=== PATIENT | female | born 1975 | race Caucasian/White ===

== ENCOUNTER → 2017-10-11 13:17 | Outpatient (POV) | payer OTHER, SELFPAY | PROVIDERS: Visit Provider Physician Assistant | DX: Z00.00 Encounter for general adult medical examination without abnormal findings (principal) ==

== ENCOUNTER 2022-01-05 19:25 | Emergency (ER) | payer BC, SELFPAY ==
[2022-01-05 19:26] VITALS: BP 142/90; PULSE 94; RESP 16; TEMP 36.8; O2SAT 97; BMI 46.6
[2022-01-05 20:02] VITALS: BMI 46.6
--- NOTE | 2022-01-05 20:18 | CT_ITS ---
PROCEDURE INFORMATION: Exam: CT Abdomen And Pelvis Without Contrast Exam date and time: 01/05/2022 8:38 PM Age: 46 years old Clinical indication: Abdominal pain; Flank; Right; Prior surgery; Surgery date: 6+ months; Surgery type: Tubal ligation; Additional info: Abd pain TECHNIQUE: Imaging protocol: Computed tomography of the abdomen and pelvis without contrast. Radiation optimization: All CT scans at this facility use at least one of these dose optimization techniques: automated exposure control; mA and/or kV adjustment per patient size (includes targeted exams where dose is matched to clinical indication); or iterative reconstruction. COMPARISON: No relevant prior studies available. FINDINGS: Liver: Normal. No mass. Gallbladder and bile ducts: Normal. No calcified stones. No ductal dilation. Pancreas: Normal. No ductal dilation. Spleen: Normal. No splenomegaly. 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 Kidneys and ureters: Nonobstructing right renal calculus. Stomach and bowel: Unremarkable. No obstruction. No mucosal thickening. Appendix: No evidence of appendicitis. Intraperitoneal space: Unremarkable. No free air. No significant fluid collection. Vasculature: Minimal atherosclerotic disease of the arteries. Lymph nodes: Unremarkable. No enlarged lymph nodes. Urinary bladder: Unremarkable as visualized. Reproductive: Bilateral tubal ligation. Bones/joints: Unremarkable. No acute fracture. Soft tissues: Small fat containing right inguinal hernia. Other findings: Stigmata of old granulomatous disease. IMPRESSION: 1. No acute findings. 2. Nonobstructing right renal calculus. COMMENTS: Consistent with the [employer]'s Incidental Findings Committee white paper (J Am Lalo Radiol 2017): For any incidental adrenal lesion greater than 1 cm but less than 4 cm classified in this report as benign, likely benign, or containing fat (including classification as an adenoma or myelolipoma), no follow-up imaging is recommended per consensus recommendations based on imaging criteria. Further lab evaluation could be pursued if warranted based on clinical findings.
--- NOTE | 2022-01-05 20:19 | HMH.EDNVD ---
ED Disposition Clinical Impression: Abdominal pain Qualifiers: Abdominal location: right lower quadrant Qualified Code(s): R10.31 - Right lower quadrant pain Disposition: Home, Self-Care Condition on Discharge: Good Instructions: DI for Acute Abdominal Pain Additional Instructions: see pcp for follow up Prescriptions: Dicyclomine HCl [Bentyl 10mg capsule] 10 mg PO TID #15 cap Transmission Status: Pending to [facility]/pharmacy #[id number] Referrals: Du Humphries [Primary Care Provider] - - Critical Care Critical Care Time: No Attestation: On 01/05/22, the high probability of a clinically significant, sudden or life threatening deterioration of the following system(s) required my full and direct attention, intervention and personal management. The time I documented below is in addition to time spent performing reported procedures but includes the following listed in this critical care notation. Medical Decision Making - Medical Records Medical records reviewed: Yes: I reviewed the patient's medical records. - Rafael Inquiry Pt receiving controlled substance: No Vital Signs: 01/05/22 19:26 Temperature 98.2 F Temperature Source Oral Pulse Rate [Right] 94 H Respiratory Rate 16 Blood Pressure [Right Arm] 142/90 H Blood Pressure Mean [Right Arm] 107 02 Sat by Pulse Oximetry 97 - Lab Data Lab results reviewed: Yes: I reviewed the patient's lab results. Lab Results 01/05/22 20:10: Urine Color Yellow, Urine Appearance Clear, Urine pH 7.5, Ur Specific [place] 1.020, Urine Protein Negative, Urine Glucose (UA) Negative, Urine Ketones Negative, Urine Blood Trace-i, Urine Nitrate Negative, Urine Bilirubin Negative, Urine Urobilinogen 0.2, Ur Leukocyte Esterase Negative, Urine RBC Occasional, Urine WBC None, Ur Squamous Epith Cells Occasional, Urine Bacteria None 01/05/22 20:10: WBC 7.4, RBC 4.34, Hgb 12.8, Hct 36.9 L, MCV 85.0, MCH 29.5, MCHC 34.7, RDW 13.9, Plt Count 334, MPV 8.1, Neut % (Auto) 69.8, Lymph % (Auto) 20.8, Gentry % (Auto) 7.0, Eos % (Auto) 2.1, Baso % (Auto) 0.3, Neut # (Auto) 5.1, Lymph # (Auto) 1.5, Gentry # (Auto) 0.5, Eos # (Auto) 0.2, Baso # (Auto) 0.0, ESR 46 H 01/05/22 20:10: Sodium 135 L, Potassium 4.2, Chloride 102, Carbon Dioxide 26, Anion Gap 11.2, BUN 10, Creatinine 0.60, Estimated Creat Clear 128, Estimated GFR 108, Est GFR ( Amer) 131, Glucose 86, Calcium 8.4, Total Bilirubin < 0.1 L, AST 22, ALT 18, Alkaline Phosphatase 103, C-Reactive Protein 17.5 H, Total Protein 7.0, Albumin 3.8, Globulin 3.2, Albumin/Globulin Ratio 1.2, Amylase 44, Lipase 34, Procalcitonin 0.053 Result diagrams: 01/05/22 20:10 01/05/22 20:10 Orders (Tests/Meds): ED MEDICATIONS Generic Name Dose Route Start Last Admin Trade Name Freq PRN Reason Stop Dose Admin Sodium Chloride 1,000 mls @ 999 mls/hr 01/05/22 20:15 01/05/22 21:10 Sod Chlor 0.9% 1000ml Bag IV 01/05/22 21:15 999 mls/hr .Q1H1M ZACHARY Administration Discontinued Medications Generic Name Dose Route Start Last Admin Trade Name Freq PRN Reason Stop Dose Admin Ketorolac Tromethamine 30 mg 01/05/22 20:12 01/05/22 21:10 Ketorolac 30mg/Ml Vial IV 01/05/22 20:13 30 mg ONCE ONE Administration Ondansetron HCl 4 mg 01/05/22 20:12 01/05/22 21:10 Ondansetron 4mg/2ml Vial IV 01/05/22 20:13 4 mg ONCE ONE Administration - CT Data CT Scan: Abdomen, Pelvis Time Received: 22:[address] Reviewed: Yes: I have viewed the radiologist's interpretation Preliminary Findings: Normal/NAD Medical Decision Narrative: has rt sided abd pain possible appendix/kidney stone or ovarian - but stable labs and xrays and will give trial of treatment and follow up with pcp Nausea/Vomiting/Diarrhea HPI - General Chief complaint: Abdominal Pain Stated complaint: r side abd pain Time Seen by Provider: 01/05/22 20:19 Mode of Arrival: Ambulatory Source of Information: Patient, Medical Record Limitations: No Limitations Description of Symptom
[2022-01-05 20:28] LABS: Microscopic, Urine URINE MICROSCOPIC (MICROSCOPIC)
[2022-01-05 20:31] LABS: Basophils % 0.3 % (0.1-2.0); Eosinophils # 0.2 K/mm3 (0.0-0.4); Eosinophils % 2.1 % (0.1-12.0); Hematocrit 36.9 % (37.0-47.0); Hemoglobin 12.8 g/dL (12.2-16.2); Lymphocytes # 1.5 K/mm3 (0.7-4.5); Lymphocytes % 20.8 % (10-50); Mean Corpuscular HGB Conc 34.7 g/dL (31.8-35.4); Mean Corpuscular Hemoglobin 29.5 pg (27.0-31.2); Mean Platelet Volume 8.1 fl (7.4-10.4); Monocytes # 0.5 K/mm3 (0.1-1.0); Neutrophils # 5.1 K/mm3 (1.8-7.8); Neutrophils % 69.8 % (37.0-80.0); Platelet Count 334 K/mm3 (142-424); Red Blood Count 4.34 M/mm3 (4.20-5.40); Red Cell Distribution Width 13.9 % (11.5-17.5); White Blood Count 7.4 K/mm3 (4.8-10.8)
[2022-01-05 20:48] LABS: Appearance,Urine CLEAR (Clear); Bilirubin,Urine Negative (Negative); Blood, Urine TRACE-I (Negative); Color,Urine YELLOW (Yellow); Glucose,Urine (UA) Negative (Negative); Ketones,Urine Negative (Negative); Leukocyte Esterase,Urine Negative (Negative); Nitrate,Urine Negative (Negative); PH,Urine 7.5 (5.0-8.5); Protein,Urine Negative (Negative); Urobilinogen,Urine 0.2 EU/dl (0.2)
[2022-01-05 20:50] LABS: Alanine Aminotransferase 18 U/L (12-78); Albumin Level 3.8 g/dl (3.5-5.0); Albumin/Globulin Ratio 1.2 (1.1-1.8); Alkaline Phosphatase 103 U/L (38-126); Amylase 44 U/L (30-110); Anion Gap 11.2 mEq/L (5-15); Aspartate Amino Transferase 22 U/L (14-36); Blood Urea Nitrogen 10 mg/dl (7-17); Calcium 8.4 mg/dl (8.4-10.2); Carbon Dioxide 26 mmol/L (22.0-30.0); Chloride 102 mmol/L (98-107); Creatinine Clearance Estimated 128 mL/min (50-200); Estimated Glomerular Filt Rate 108 ml/min (>60); GFR (African American) 131 ML/MIN (>60); Globulin 3.2 g/dL (1.3-3.2); Glucose 86 mg/dl (74-100); Lipase 34 U/L (23-300); Potassium 4.2 mmoL/L (3.5-5.1); Sodium 135 mmol/L (136-145)
[2022-01-05 20:51] LABS: Bilirubin,Total < 0.1 mg/dl (0.2-1.3)
[2022-01-05 20:55] LABS: C-Reactive Protein 17.5 mg/L (0-4)
[2022-01-05 21:10] LABS: Procalcitonin 0.053 ng/mL (0.0-2.0); RBC,Urine Occasional #/hpf (0-3); Squamous Epithelial Cell,Urine Occasional #/hpf (0-5)
[2022-01-05 21:11] LABS: Erythrocyte Sedimentation Rate 46 mm/hr (0-20)
[2022-01-05 22:23] VITALS: BP 125/78; PULSE 88; RESP 18; TEMP 36.7; O2SAT 97
== END 2022-01-05 22:35 | disposition home or self-care (01) ==
PROVIDERS: Emergency Provider Emergency Medicine; PCP Internal Medicine
DX: R10.31 Right lower quadrant pain (principal)
CPT/HCPCS: 74176; 80053; 81001; 82150; 83690; 84145; 85025; 85651; 86140; 96365; 96375; 99284; J2405

== ENCOUNTER → 2023-01-03 21:55 | Outpatient (CLI) | payer OTHER, SELFPAY ==
[2023-01-03 23:33] LABS: Thyroid Stimulating Hormone < 0.02 uIU/mL (0.465-4.68)
== END ==
PROVIDERS: PCP Internal Medicine; Visit Provider Obstetrics & Gynecology
DX: E03.9 Hypothyroidism, unspecified (principal); N93.9 Abnormal uterine and vaginal bleeding, unspecified
CPT/HCPCS: 84443

== ENCOUNTER → 2023-01-07 06:54 | Outpatient (CLI) | payer OTHER, SELFPAY ==
--- NOTE | 2023-01-07 07:02 | US_ITS ---
PROCEDURE: US TRANSVAGINAL CLINICAL INDICATION: abnormal uterine and vaginal bleeding COMPARISON: No exams were available for comparison FINDINGS: UTERUS: 7cm x 7cmx 6cm with a combined endometrial thickness of 13 millimeters. Retroverted uterus There are 2 nabothian cysts in the cervix measuring 1 cm and 0.6 cm LEFT OVARY: [id number] with a volume of 6ml. RIGHT OVARY: 2cmx [id number] with a volume of 3.9ml. There is a 7.6 millimeter follicle on the right ovary. Both ovaries are seen and appear normal. Doppler flow to both ovaries are seen. There is no fluid in the cul-de-sac. IMPRESSION: 1. Difficult examination. 2. Retroverted uterus normal in shape and size with an endometrium measuring 13 millimeters. Two nabothian cysts are seen in the cervix. 3. Both ovaries are seen and appear normal. There was a small follicle on the right ovary. 4. No fluid in the cul-de-sac. Dictated by: Rosalio Hollingsworth MD 01/07/2023 14:10 Rosalio Hollingsworth MD in OV 01/07/2023 14:10
== END ==
PROVIDERS: PCP Internal Medicine; Visit Provider Obstetrics & Gynecology
DX: N93.9 Abnormal uterine and vaginal bleeding, unspecified (principal)
CPT/HCPCS: 76830

== ENCOUNTER 2023-06-09 08:02 | Emergency (ER) | payer OTHER, SELFPAY ==
[2023-06-09 08:15] VITALS: PULSE 119; RESP 18; TEMP 36.9; O2SAT 97; BMI 50.2
--- NOTE | 2023-06-09 08:40 | EXP.UTC ---
Discharge Plan Disposition Patient Disposition: Home, Self-Care Condition: Good Prescriptions Prescriptions: New azithromycin [Zithromax] 250 mg tablet See Rx Instructions .ROUTE .COMPLEX Qty: 6 0RF Rx Instructions: For 250 mg dose pack: take 500 mg today (day 1), then 250 mg for 4 days (days 2-5) prednisone [prednisone] 20 mg tablet 20 mg PO BID Qty: 10 0RF No Action methimazole 5 mg tablet 7.5 mg PO DAILY montelukast 10 mg tablet 10 mg PO DAILY Patient Comments: TAKE 1 TABLET BY MOUTH EVERY DAY omeprazole 40 mg capsule,delayed release(DR/EC) 40 mg PO DAILY Patient Comments: TAKE 1 CAPSULE BY MOUTH EVERY DAY clindamycin phosphate 1 % solution 1 applic topical ketoconazole 2 % shampoo 1 applic topical Patient Comments: APPLY TOPICALLY TO THE SCALP 2 TIMES A WEEK NEEDED FOR PSORIASIS amlodipine-olmesartan 5-40 mg tablet 1 tab PO DAILY Patient Comments: TAKE 1 TABLET BY MOUTH DAILY Referrals Follow up/Referrals: Du Humphries [Primary Care Provider] - See instructions Activity Restrictions/Add. Instructions Additional Instructions/Restrictions: Start antibiotic today. Be sure to complete entire prescription even if feeling better Tylenol and ibuprofen as needed for pain or fever Humidifier/vaporizer/hot steamy shower Follow-up with primary care tomorrow. Follow-up immediately in the ER of the [facility] for new or worsening symptoms or no noticeable improvement over the next 48-72 hours. Stop smoking Inhaler every 4-6 hours as needed. Should help open airways improved cough, wheezing, shortness of breath Mona Foote will not cause drowsiness to use at bedtime to help stop cough so that she can get some sleep Start steroids today. Helps with inflammation therefore coughing and wheezing. Follow directions on package. Clinical Impressions Clinical Impression: Acute bronchitis Qualifiers: Bronchitis organism: other organism Qualified Code(s): J20.8 - Acute bronchitis due to other specified organisms Instructions Patient Instructions: Acute Bronchitis Discharge ED Provider: Eron ([facility])Claudine [facility] HPI General Stated complaint: cough, chest congestion, HERNANDEZ Mode of Arrival: Ambulatory Source of Information: Patient Limitations: No Limitations Time Seen by Provider: 06/09/23 08:40 Description of Symptoms (Recalled from Triage Doc. by RN): chest congestion, stuffy nose, right ear pain, and productive cough. HEENT Symptoms (Recalled from RN notes): Yes Resp Symptoms (Recalled from RN notes): No Skin Symptoms (Recalled from RN notes): No MS Symptoms (Recalled from RN notes): No Functional Status (Recalled from RN notes): n/a History of Present Illness Provider Complaint: 47 yr old female presents for chest congestion, stuffy nose, right ear pain, and productive cough with thick brown color sputum. Related Data Home Medications Medication Instructions Recorded Confirmed clindamycin phosphate 1 % topical 1 applic topical 12/30/22 12/30/22 solution ketoconazole 2 % shampoo 1 applic topical 12/30/22 12/30/22 methimazole 5 mg tablet 7.5 mg PO DAILY 12/30/22 06/09/23 montelukast 10 mg tablet 10 mg PO DAILY 12/30/22 06/09/23 omeprazole 40 mg capsule,delayed 40 mg PO DAILY 12/30/22 06/09/23 release amlodipine 5 mg-olmesartan 40 mg 1 tab PO DAILY 06/09/23 06/09/23 tablet Previous Rx's Medication Instructions Recorded azithromycin 250 mg tablet See Rx Instructions PO .COMPLEX #6 06/09/23 (Zithromax) tabs prednisone 20 mg tablet 20 mg PO BID #10 tabs 06/09/23 Allergies Allergy/AdvReac Type Severity Reaction Status Date / Time morphine Allergy Verified 06/09/23 08:26 ASA (ASPIRIN) Allergy Unknown Uncoded 12/30/22 10:54 From ULTRAM Allergy Unknown Uncoded 12/30/22 10:54 LATEX Allergy Unknown Uncoded 12/30/22 10:54 PCN (PENICILLIN) Allergy Unknown Uncoded 12/30/22 10:54 Worker's Comp Is this a Worker's
[2023-06-09 09:16] VITALS: BP 140/99; PULSE 119; RESP 18; TEMP 36.9; O2SAT 97
== END 2023-06-09 09:15 | disposition home or self-care (01) ==
PROVIDERS: Emergency Provider Nurse Practitioner Family; PCP Internal Medicine
DX: J20.8 Acute bronchitis due to other specified organisms (principal); R05.9 Cough, unspecified; R09.89 Other specified symptoms and signs involving the circulatory and respiratory systems; R51.9 Headache, unspecified; H92.01 Otalgia, right ear; E03.9 Hypothyroidism, unspecified; E66.01 Morbid (severe) obesity due to excess calories; Z87.891 Personal history of nicotine dependence
CPT/HCPCS: 99204; 99212; G0463

== ENCOUNTER 2023-09-24 07:32 | Outpatient (CLI) | payer OTHER, SELFPAY ==
[2023-09-24 07:48] LABS: Microscopic, Urine URINE MICROSCOPIC (MICROSCOPIC)
--- NOTE | 2023-09-24 08:00 | MM_ITS ---
PROCEDURE INFORMATION: Exam: Bilateral Screening 3D Mammography Exam date and time: 09/24/2023 8:18 AM Age: 48 years old Clinical indication: Screening examination TECHNIQUE: Imaging protocol: Bilateral Screening tomosynthesis and 2D mammography including computer-aided detection (CAD) when performed. COMPARISON: SCREEN MAMMO W CAD BILAT 07/10/2022 7:57 AM FINDINGS: MAMMOGRAPHY: Breast composition: There are scattered areas of fibroglandular density. Mass: No new or suspicious masses Architectural distortion: None. Calcifications: No suspicious calcifications. Asymmetric density: None. Skin thickening: None. Axillary adenopathy: None. IMPRESSION: No mammographic evidence of malignancy. Annual screening is recommended unless otherwise clinically indicated. ASSESSMENT: BI-RADS Category 1: Negative
[2023-09-24 08:13] LABS: Basophils % 0.4 % (0.1-2.0); Eosinophils # 0.2 K/mm3 (0.0-0.4); Eosinophils % 4.5 % (0.1-12.0); Hematocrit 38.3 % (37.0-47.0); Hemoglobin 12.3 g/dL (12.2-16.2); Lymphocytes # 1.5 K/mm3 (0.7-4.5); Lymphocytes % 29.8 % (10-50); Mean Corpuscular HGB Conc 32.1 g/dL (31.8-35.4); Mean Corpuscular Hemoglobin 28.8 pg (27.0-31.2); Mean Corpuscular Volume 89.8 fl (81-99); Mean Platelet Volume 8.8 fl (7.4-10.4); Monocytes # 0.3 K/mm3 (0.1-1.0); Monocytes % 6.6 % (1.7-9.3); Neutrophils % 58.8 % (37.0-80.0); Platelet Count 305 K/mm3 (142-424); Red Blood Count 4.27 M/mm3 (4.20-5.40); Red Cell Distribution Width 14.9 % (11.5-17.5); White Blood Count 5.1 K/mm3 (4.8-10.8)
[2023-09-24 08:56] LABS: Appearance,Urine CLEAR (Clear); Blood, Urine 3+ (Negative); Color,Urine YELLOW (Yellow); Glucose,Urine (UA) Negative (Negative); Ketones,Urine Negative (Negative); Leukocyte Esterase,Urine Negative (Negative); Nitrate,Urine Negative (Negative); Protein,Urine TRACE (Negative); Specific Gravity, Urine >= 1.030 (1.005-1.030); Urobilinogen,Urine 0.2 EU/dl (0.2)
[2023-09-24 09:31] LABS: Chol/HDL Ratio 6.1 (1-3.5); Cholesterol 158 mg/dl (140-200); HDL Cholesterol 26 mg/dl (40-60); Triglycerides 124 mg/dl (30-150); VLDL Cholesterol 25 mg/dL (0-40)
[2023-09-24 09:44] LABS: Bilirubin,Urine Negative (Negative)
[2023-09-24 10:02] LABS: Thyroid Stimulating Hormone 0.03 uIU/mL (0.465-4.68)
[2023-09-24 10:21] LABS: Vitamin B12 357 pg/mL (239-931)
[2023-09-24 10:23] LABS: 25-OH Vitamin D, Total 23.1 ng/mL (30-100)
[2023-09-24 11:46] LABS: WBC,Urine Occasional #/hpf (0-3)
[2023-09-24 11:47] LABS: Bacteria,Urine Trace /lpf; RBC,Urine Occasional #/hpf (0-3); Squamous Epithelial Cell,Urine Occasional #/hpf (0-5)
[2023-09-24 13:29] LABS: Hemoglobin A1C 5.5 % (4.0-6.0)
[2023-09-24 16:58] LABS: Creatinine,Urine Random 635 mg/dL (Not Estab.); Microalbumin/Creatinine Ratio 5.5
[2023-09-29 00:10] LABS: Vitamin B1 116.2 nmol/L (66.5-200.0)
== END 2023-09-24 23:59 ==
LOC: RAD 07:32
PROVIDERS: PCP Internal Medicine; Visit Provider Internal Medicine
DX: Z01.818 Encounter for other preprocedural examination (principal); E05.90 Thyrotoxicosis, unspecified without thyrotoxic crisis or storm; E78.2 Mixed hyperlipidemia; R73.03 Prediabetes; I10 Essential (primary) hypertension; E55.9 Vitamin D deficiency, unspecified; E53.9 Vitamin B deficiency, unspecified; F17.211 Nicotine dependence, cigarettes, in remission
CPT/HCPCS: 36415; 77063; 77067; 80061; 81001; 82043; 82306; 82570; 82607; 83036; 84425; 84439; 84443; 85025

== ENCOUNTER 2023-10-28 10:48 | Day surgery (SDC) | payer OTHER, SELFPAY ==
[2023-10-25 14:06] VITALS: BMI 55.5
[2023-10-28 11:18] VITALS: BP 123/95; PULSE 103; RESP 18; TEMP 36.3; O2SAT 96
[2023-10-28] MEDS: LACTATED RINGERS 1000ML 1,000 ML 100 ML IV (11:18)
[2023-10-28 11:49] LABS: HCG Qualitative, Serum Negative (Negative)
[2023-10-28 12:03] VITALS: O2SAT 95
--- NOTE | 2023-10-28 12:12 | HMH.SCOPE ---
Procedure: Date: 10/28/23 Patient Date of :: 1975 Procedure Performed:: Pre-op Screening evaluation Indications:: Screening examination before bariatric surgery Performing Provider:: Gelacio Smimons MD Referring Provider:: Du Humphries Sedation:: Propofol Procedure:: After placing the patient in the left lateral decubitus position, the colonoscopy was gently inserted into the rectum and under direct visualization advanced to the cecum which was identified by transillumination in the right lower quadrant, identification of the ileocecal valve, appendiceal orifice, and cecal strap. Color, texture, mucosa, and anatomy of the colon were carefully examined with the scope. Findings:: Anal canal: normal Rectum: normal Sigmoid colon: normal without polyps or inflammatory changes Descending colon: normal without polyps or inflammatory changes Splenic flexure: normal Transverse colon: normal without polyps or inflammatory changes Hepatic flexure: normal Ascending colon: normal without polyps or inflammatory changes Cecum: normal Terminal ileum: not visualized Impression: Normal colonoscopy Recommendations:: Follow up examination in about TEN years or so, sooner if clinically indicated. Complications:: None Estimated blood obtained (mL): 0 Colonoscopy Component Colonoscopy Component Was a colonoscopy performed during today's procedure?: Yes Recommended follow up colonoscopy of at least 10 years?: Yes
[2023-10-28 12:14] VITALS: BP 83/39; PULSE 97; RESP 18; TEMP 36.3; O2SAT 92
[2023-10-28 12:24] VITALS: BP 98/61; PULSE 112; RESP 16; O2SAT 94
[2023-10-28 12:44] VITALS: BP 113/68; PULSE 102; RESP 16; TEMP 36.6; O2SAT 98
--- NOTE | 2023-10-28 13:36 | EXP.ANES.CKL ---
[facility] Disclaimer: The information contained in this section may have been updated after the patient was seen, as this information can be updated by other users. Medical History GERD (gastroesophageal reflux disease) HTN (hypertension) Severe obesity (BMI >= 40) Abnormal uterine bleeding Hypothyroidism Surgical History Hx of tubal ligation Hx of laparoscopy Family History Other No significant family history Social History Smoking Status: Former smoker alcohol intake: never substance use type: denies use current occupational status: employed Travel in the last 8 weeks: None [facility] Anesthesia Checklist Patient Identification Patient Identification: Verbal (Name & ) Structural Data Admitted From: Home Planned Operative Procedure/s: colonoscopy Consent for Planned Operative Procedure(s) Verified: Yes Airway Assessment Mallampati Score:: Class II C-Spine Mobility Assessed: Yes TMJ Mobility Assessed: Yes Dentition: Good Dentition Neurological Assessment Level of Consciousness: Awake, Alert and Appropriate Anesthesia Plan Anesthesia Risk discussed: Yes Anesthesia Plan: Verified ASA Class: III Anesthesia Type: MAC
== END 2023-10-28 12:55 | disposition home or self-care (01) ==
PROVIDERS: PCP Internal Medicine; Visit Provider Internal Medicine Gastroenterology
PROC: 0DJD8ZZ Inspection of Lower Intestinal Tract, Via Natural or Artificial Opening Endoscopic (ICD-10-PCS; CPT 45378; principal; 2023-10-28 12:00)
DX: Z01.818 Encounter for other preprocedural examination (principal); E66.9 Obesity, unspecified
CPT/HCPCS: 45378; 84703

== ENCOUNTER 2023-11-04 02:38 | Outpatient (CLI) | payer OTHER, SELFPAY ==
[2023-11-10 10:31] LABS: Cotinine <10.0 ng/mL (.); Nicotine <10.0 ng/mL (.)
== END 2023-11-04 23:59 ==
LOC: LAB 02:40
PROVIDERS: PCP Internal Medicine; Visit Provider Internal Medicine
DX: Z01.818 Encounter for other preprocedural examination (principal)
CPT/HCPCS: 80323; G0480

== ENCOUNTER 2023-11-12 07:09 | Outpatient (CLI) | payer OTHER, SELFPAY ==
--- NOTE | 2023-11-12 07:13 | US_ITS ---
FINAL REPORT CLINICAL HISTORY: gastric sleeve preop FINDINGS: ULTRASOUND RIGHT UPPER QUADRANT Sonographic imaging of the right upper quadrant was obtained. The pancreas is partially obscured. The liver is fatty infiltrated There is no evidence of gallstones. There is no gallbladder wall thickening. There is no biliary ductal dilatation. The common duct is normal at 3 mm. Limited images of the right kidney are unremarkable. IMPRESSION: Fatty liver. Reviewed, Interpreted and Dictated by Guanaco Mo MD Transcribed by Niecy Dao Authenticated and [facility]
== END 2023-11-12 23:59 | disposition home or self-care (01) ==
LOC: RAD 07:09
PROVIDERS: PCP Internal Medicine; Visit Provider Surgery
DX: E66.01 Morbid (severe) obesity due to excess calories (principal); Z68.43 Body mass index [BMI] 50.0-59.9, adult
CPT/HCPCS: 76705

== ENCOUNTER 2023-12-22 12:28 | Outpatient (CLI) | payer OTHER, SELFPAY ==
[2023-12-22 14:27] LABS: Free T4 (Free Thyroxine) 3.42 ng/dl (0.78-2.19)
[2023-12-22 14:42] LABS: Thyroid Stimulating Hormone < 0.02 uIU/mL (0.465-4.68)
[2023-12-23 08:32] LABS: Triiodothyronine (T3) Total 238 ng/dL (71-180)
== END 2023-12-22 23:59 | disposition home or self-care (01) ==
LOC: LAB 12:29
PROVIDERS: PCP Internal Medicine; Visit Provider Internal Medicine
DX: E05.00 Thyrotoxicosis with diffuse goiter without thyrotoxic crisis or storm (principal)
CPT/HCPCS: 36415; 84439; 84443; 84480

== ENCOUNTER 2024-02-24 18:49 | Outpatient (CLI) | payer OTHER, SELFPAY ==
[2024-02-24 23:51] LABS: Basophils % 0.5 % (0.1-2.0); Eosinophils # 0.2 K/mm3 (0.0-0.4); Eosinophils % 4.2 % (0.1-12.0); Hematocrit 41.3 % (37.0-47.0); Hemoglobin 13.2 g/dL (12.2-16.2); Lymphocytes # 1.9 K/mm3 (0.7-4.5); Lymphocytes % 32.4 % (10-50); Mean Corpuscular Hemoglobin 29.7 pg (27.0-31.2); Mean Corpuscular Volume 92.8 fl (81-99); Mean Platelet Volume 9.2 fl (7.4-10.4); Monocytes # 0.4 K/mm3 (0.1-1.0); Monocytes % 6.7 % (1.7-9.3); Neutrophils # 3.3 K/mm3 (1.8-7.8); Neutrophils % 56.2 % (37.0-80.0); Platelet Count 301 K/mm3 (142-424); Red Blood Count 4.45 M/mm3 (4.20-5.40); Red Cell Distribution Width 15.4 % (11.5-17.5); White Blood Count 5.8 K/mm3 (4.8-10.8)
[2024-02-25 00:11] LABS: Alanine Aminotransferase 29 U/L (12-78); Albumin/Globulin Ratio 1.3 (1.1-1.8); Alkaline Phosphatase 72 U/L (38-126); Anion Gap 9.6 mEq/L (5-15); Aspartate Amino Transferase 34 U/L (14-36); Bilirubin,Total 0.4 mg/dl (0.2-1.3); Blood Urea Nitrogen 12 mg/dl (7-17); Calcium 8.8 mg/dl (8.4-10.2); Carbon Dioxide 27 mmol/L (22.0-30.0); Chloride 106 mmol/L (98-107); Estimated Glomerular Filt Rate 107 ml/min (>60); GFR (African American) 130 ML/MIN (>60); Globulin 3.2 g/dL (1.3-3.2); Glucose 86 mg/dl (74-100); Potassium 3.6 mmoL/L (3.5-5.1); Sodium 139 mmol/L (136-145); Total Protein,Serum 7.2 g/dl (6.3-8.2)
[2024-02-25 00:26] LABS: Free T4 (Free Thyroxine) 1.32 ng/dl (0.78-2.19)
[2024-02-25 00:41] LABS: Thyroid Stimulating Hormone < 0.02 uIU/mL (0.465-4.68)
[2024-02-26 12:12] LABS: Triiodothyronine (T3) Total 168 ng/dL (71-180)
[2024-02-27 16:32] LABS: Thyroid Stimulating Immunoglob 0.83 IU/L (0.00-0.55)
[2024-02-28 11:21] LABS: Miscellaneous Test SCANNED IMAGE
== END 2024-02-24 23:59 | disposition home or self-care (01) ==
LOC: LAB 18:52
PROVIDERS: PCP Internal Medicine; Visit Provider Internal Medicine Endocrinology, Diabetes & Metabolism
DX: E05.00 Thyrotoxicosis with diffuse goiter without thyrotoxic crisis or storm (principal); E05.90 Thyrotoxicosis, unspecified without thyrotoxic crisis or storm
CPT/HCPCS: 80050; 80053; 84439; 84443; 84445; 84480; 85025

== ENCOUNTER 2024-04-04 16:37 | Outpatient (POV) | payer OTHER, SELFPAY | END 2024-04-04 23:59 | disposition home or self-care (01) | LOC: SC 16:37 | PROVIDERS: PCP Internal Medicine; Visit Provider Dermatology | DX: Z00.00 Encounter for general adult medical examination without abnormal findings (principal) ==

== ENCOUNTER 2024-04-24 08:04 | Emergency (ER) | payer OTHER, SELFPAY ==
[2024-04-24 08:20] VITALS: BP 141/89; PULSE 86; RESP 19; TEMP 36.6; O2SAT 97; BMI 44.1
--- NOTE | 2024-04-24 08:44 | ED_ITS ---
Discharge Plan Disposition Patient Disposition: Home, Self-Care Condition: Good Prescriptions Prescriptions: New prednisone 10 mg tablet 10 mg PO DIRECTED 9 Days Qty: 21 0RF Rx Instructions: Take 4 tablets daily for 3 days, then take 2 tablets daily for 3 days, then take 1 tablet daily for 3 days, then stop. azithromycin [Zithromax] 250 mg tablet 250 mg PO UD DOSE PK Qty: 6 0RF Rx Instructions: Take two (2) tablets today, then one (1) tablet days #2 thru #5 benzonatate 100 mg capsule 100 mg PO TIDP PRN (Reason: Cough) Qty: 30 0RF No Action doxycycline hyclate 100 mg capsule 100 mg PO DAILY Patient Comments: TAKE 1 CAPSULE BY MOUTH TWICE DAILY omeprazole 40 mg capsule,delayed release(DR/EC) 40 mg PO DAILY Patient Comments: TAKE 1 CAPSULE BY MOUTH EVERY DAY montelukast 10 mg tablet 10 mg PO DAILY Patient Comments: TAKE 1 TABLET BY MOUTH EVERY DAY methimazole 10 mg tablet 10 mg PO DAILY Referrals Follow up/Referrals: Du Humphries [Primary Care Provider] - See instructions Activity Restrictions/Add. Instructions Additional Instructions/Restrictions: Drink plenty of fluids. Take tylenol or ibuprofen for pain or fever. Take the medications as directed. Follow up with your regular doctor. GO TO THE ER FOR ANY WORSENING SYMPTOMS Clinical Impressions Clinical Impression: Sinusitis Instructions Patient Instructions: Sinusitis, DI for Sinusitis Print Language Print Language: Afghan Discharge ED Provider: Britton Kline [facility] General Stated complaint: head congestion Mode of Arrival: Ambulatory Source of Information: Patient Limitations: No Limitations Time Seen by Provider: 04/24/24 08:56 Description of Symptoms (Recalled from Triage Doc. by RN): PATIENT C/O RIGHT EAR PAIN, SINUS PAIN/PRESSURE AND CONGESTION SINCE YESTERDAY HEENT Symptoms (Recalled from RN notes): Yes Resp Symptoms (Recalled from RN notes): No Skin Symptoms (Recalled from RN notes): No MS Symptoms (Recalled from RN notes): No Functional Status (Recalled from RN notes): WNL Related Data Home Medications ?Medication ?Instructions ?Recorded ?Confirmed doxycycline hyclate 100 mg capsule 100 mg PO DAILY 04/24/24 04/24/24 methimazole 10 mg tablet 10 mg PO DAILY 04/24/24 04/24/24 montelukast 10 mg tablet 10 mg PO DAILY 04/24/24 04/24/24 omeprazole 40 mg capsule,delayed 40 mg PO DAILY 04/24/24 04/24/24 release Previous Rx's ?Medication ?Instructions ?Recorded azithromycin 250 mg tablet 250 mg PO UD DOSE PK #6 tabs 04/24/24 (Zithromax) benzonatate 100 mg capsule 100 mg PO TIDP PRN Cough #30 caps 04/24/24 prednisone 10 mg tablet 10 mg PO DIRECTED 9 days #21 04/24/24 tabs Allergies Allergy/AdvReac Type Severity Reaction Status Date / Time aspirin Allergy Unknown Verified 04/24/24 08:29 allergy reaction latex Allergy Unknown Verified 04/24/24 08:29 allergy reaction morphine Allergy Unknown Verified 04/24/24 08:29 allergy reaction Penicillins Allergy Unknown Verified 04/24/24 08:29 allergy reaction tramadol [From Ultram] Allergy Unknown Verified 04/24/24 08:29 allergy reaction Worker's Comp Is this a Worker's Comp case?: No [facility] Disclaimer: The information contained in this section may have been updated after the patient was seen, as this information can be updated by other users. Medical History (Updated 04/24/24 @ 08:45 by Britton Kline APRN) GERD (gastroesophageal reflux disease) HTN (hypertension) Severe obesity (BMI >= 40) Abnormal uterine bleeding Hypothyroidism Surgical History Hx of tubal ligation Hx of laparoscopy Family History Other No significant family history Social History Smoking Status: Former smoker alcohol intake: never substance use type: denies use current occupational status: employed Travel in the last 8 weeks: None ROS Obtained: Yes All systems reviewed & no additional complaints except as documented Constitutional Constitutional: Reports poor appetite Eyes Eyes: Reports system reviewed and no additional complaints, except as documented ENT Ears, Nose, Mouth, and Throat: Reports as per HPI Cardiovascular Cardiovascular: Reports system reviewed and no additional complaints, except as documented and Denies chest pain Respiratory Respiratory: Denies shortness of breath, Denies chest congestion, Reports cough, Denies stridor and Denies wheezing Gastrointestinal Gastrointestingal: Reports system reviewed and no additional complaints, except as documented; Denies abdominal pain, diarrhea or vomiting Musculoskeletal Musculoskeletal: Reports system reviewed and no additional complaints, except as documented and Denies arthralgias Integumentary/Breasts Skin/Breast: Reports system reviewed and no additional complaints, except as documented and Denies rash Neurologic Neurologic: Denies paresthesias Allergic/Immunologic Allergic/Immunologic: Denies wheezing Physical Exam General General appearance: alert and in no apparent distress Eye Eye exam: Present normal appearance, PERRL and EOMI ENT ENT exam: Present mucous membranes moist and normal external ear exam Expanded ENT Exam External ear exam: Present normal external inspection TM/Canal exam: Bilateral TM: erythema and bulging Nose exam: Absent sinus tenderness Nasal speculum exam: Bilateral: normal Mouth exam: Present normal external inspection; Absent drooling Teeth exam: Present normal inspection Throat exam: Present tonsillar erythema and tonsillomegaly Neck Neck exam: Present normal inspection, full ROM and trachea midline; Absent tenderness, lymphadenopathy or thyromegaly Chest Chest inspection: Present normal inspection and symmetric chest wall rise; Absent tenderness or rash Respiratory Respiratory exam: Present normal lung sounds bilaterally; Absent respiratory distress, wheezes, stridor or accessory muscle use Cardiovascular Cardiovascular exam: Present regular rate, normal rhythm and normal heart sounds Abdominal Exam Abdominal exam: Present soft; Absent distention, tenderness, guarding, rebound or rigidity Extremities Exam Extremities exam: Present normal inspection, full ROM and normal capillary refill; Absent tenderness or calf tenderness Back Exam Back exam: Present normal inspection and full ROM; Absent tenderness Neurological Exam Neurological exam: Present alert and oriented X3 Psychiatric Psychiatric exam: Present normal affect and normal mood Skin Skin exam: Present warm, dry, intact and normal color Lymphatic Lymphatic Findings: no adenopathy Medical Decision Making Medical Records Medical records reviewed: No I reviewed the patient's medical records. Screening: Per USPSTF and CDC recommendations, given the prevalence of disease in our region, it is our hospital?s policy to screen for HIV and viral Hepatitis for all patients aged 18 and over and those with ongoing risk factors. Rafael Inquiry Pt receiving controlled substance: No Vital Signs: 04/24/24 08:20 Temperature 97.9 F Temperature Source Oral Pulse Rate [Left Brachial] 86 Respiratory Rate 19 Blood Pressure [Left Arm] 141/89 H Blood Pressure Mean [Left Arm] 106 Blood Pressure Source [Left Arm] Automatic Cuff Blood Pressure Position [Left Arm] Sitting 02 Sat by Pulse Oximetry 97 Oxygen Delivery Method Room Air Lab Data Lab results reviewed: Yes I reviewed the patient's lab results.
[2024-04-24 08:50] VITALS: BP 141/89; PULSE 86; RESP 19; TEMP 36.6; O2SAT 97
== END 2024-04-24 08:56 | disposition home or self-care (01) ==
PROVIDERS: Emergency Provider Nurse Practitioner Family; PCP Internal Medicine
DX: J01.90 Acute sinusitis, unspecified (principal); H92.01 Otalgia, right ear; R09.81 Nasal congestion
CPT/HCPCS: 99212; 99214; G0463

== ENCOUNTER 2024-07-18 19:59 | Outpatient (CLI) | payer OTHER, SELFPAY | END 2024-07-18 23:59 | disposition home or self-care (01) | LOC: LAB 20:00 | PROVIDERS: PCP Internal Medicine; Visit Provider Internal Medicine | DX: Z02.9 Encounter for administrative examinations, unspecified (principal) ==

== ENCOUNTER 2024-07-25 18:46 | Outpatient (CLI) | payer OTHER, SELFPAY ==
[2024-07-26 01:52] LABS: Basophils % 0.4 % (0.1-2.0); Eosinophils # 0.3 K/mm3 (0.0-0.4); Eosinophils % 3.5 % (0.1-12.0); Hematocrit 37.4 % (37.0-47.0); Hemoglobin 12.5 g/dL (12.2-16.2); Lymphocytes % 27.9 % (10-50); Mean Corpuscular HGB Conc 33.4 g/dL (31.8-35.4); Mean Corpuscular Hemoglobin 29.8 pg (27.0-31.2); Mean Corpuscular Volume 89.3 fl (81-99); Monocytes # 0.6 K/mm3 (0.1-1.0); Monocytes % 8.8 % (1.7-9.3); Neutrophils # 4.1 K/mm3 (1.8-7.8); Neutrophils % 58.8 % (37.0-80.0); Platelet Count 312 K/mm3 (142-424); Red Blood Count 4.19 M/mm3 (4.20-5.40); Red Cell Distribution Width 12.9 % (11.5-17.5); White Blood Count 7.1 K/mm3 (4.8-10.8)
[2024-07-26 02:37] LABS: Free T4 (Free Thyroxine) 1.24 ng/dl (0.78-2.19)
[2024-07-26 02:51] LABS: HDL Cholesterol 28 mg/dl (40-60)
[2024-07-26 02:52] LABS: Thyroid Stimulating Hormone < 0.02 uIU/mL (0.465-4.68)
[2024-07-26 02:53] LABS: Anion Gap 13.3 mEq/L (5-15); Blood Urea Nitrogen 13 mg/dl (7-17); Calcium 9.1 mg/dl (8.4-10.2); Carbon Dioxide 24 mmol/L (22.0-30.0); Chloride 103 mmol/L (98-107); Estimated Glomerular Filt Rate 107 ml/min (>60); GFR (African American) 130 ML/MIN (>60); Glucose 108 mg/dl (74-100); Potassium 4.3 mmoL/L (3.5-5.1); Sodium 136 mmol/L (136-145)
[2024-07-26 02:54] LABS: Iron 52 ug/dL (37-170); Phosphorous 4.5 mg/dl (2.5-4.5); Total Iron Binding Capacity 364 ug/dL (265-497)
[2024-07-26 02:55] LABS: Bilirubin,Total 0.3 mg/dl (0.2-1.3)
[2024-07-26 02:56] LABS: Aspartate Amino Transferase 24 U/L (14-36); Ferritin 32.2 ng/ml (6.24-137)
[2024-07-26 02:58] LABS: Alanine Aminotransferase 20 U/L (12-78); Albumin Level 3.8 g/dl (3.5-5.0); Albumin/Globulin Ratio 1.4 (1.1-1.8); Alkaline Phosphatase 94 U/L (38-126); Chol/HDL Ratio 5.6 (1-3.5); Cholesterol 158 mg/dl (140-200); Direct LDL Cholesterol 100.21 mg/dL (100-129); Globulin 2.7 g/dL (1.3-3.2); Total Protein,Serum 6.5 g/dl (6.3-8.2); Triglycerides 194 mg/dl (30-150); VLDL Cholesterol 39 mg/dL (0-40)
[2024-07-26 03:18] LABS: Hemoglobin A1C 5.1 % (4.0-6.0)
[2024-07-26 04:27] LABS: Intact Parathyroid Hormone 36.3 pg/mL (7.5-53.5)
[2024-07-26 04:32] LABS: 25-OH Vitamin D, Total 65.7 ng/mL (30-100)
[2024-07-26 05:29] LABS: Folate > 20.00 ng/mL
[2024-07-31 14:09] LABS: Vitamin A 38.4 ug/dL (20.1-62.0)
== END 2024-07-25 23:59 | disposition home or self-care (01) ==
LOC: LAB 18:47
PROVIDERS: PCP Internal Medicine; Visit Provider Internal Medicine
DX: Z90.3 Acquired absence of stomach [part of] (principal)
CPT/HCPCS: 36415; 80050; 80053; 80061; 82306; 82728; 82746; 83036; 83540; 83550; 83735; 83970; 84100; 84425; 84439; 84443; 84590; 84630; 85025

== ENCOUNTER 2024-08-03 07:14 | Outpatient (CLI) | payer OTHER, SELFPAY ==
[2024-08-05 08:12] LABS: Triiodothyronine (T3) Total 164 ng/dL (71-180)
== END 2024-08-03 23:59 | disposition home or self-care (01) ==
LOC: LAB 07:16
PROVIDERS: PCP Internal Medicine; Visit Provider Internal Medicine
DX: E05.90 Thyrotoxicosis, unspecified without thyrotoxic crisis or storm (principal)
CPT/HCPCS: 36415; 84480

== ENCOUNTER 2024-09-18 07:10 | Outpatient (CLI) | payer OTHER, SELFPAY ==
[2024-09-18 07:18] LABS: Microscopic, Urine URINE MICROSCOPIC (MICROSCOPIC)
--- NOTE | 2024-09-18 07:24 | XR_ITS ---
FINAL REPORT CLINICAL HISTORY: ACUTE RT FLANK PAIN COMPARISON: None FINDINGS: SINGLE VIEW ABDOMEN A single view of the abdomen was obtained. There is a nonobstructive bowel gas pattern. There are no abnormally dilated loops of small bowel. No abnormal calcifications are identified. There are clips overlying the pelvis from bilateral tubal ligation. IMPRESSION: Nonobstructive bowel gas pattern. Reviewed, Interpreted and Dictated by Lissa Rashid MD Transcribed by Marlyn Koroma Authenticated and [facility]
[2024-09-18 07:52] LABS: Appearance,Urine CLEAR (Clear); Bilirubin,Urine Negative (Negative); Blood, Urine TRACE-I (Negative); Color,Urine YELLOW (Yellow); Glucose,Urine (UA) Negative (Negative); Ketones,Urine Negative (Negative); Leukocyte Esterase,Urine Negative (Negative); Nitrate,Urine Negative (Negative); Protein,Urine Negative (Negative); Specific Gravity, Urine >= 1.030 (1.005-1.030); Urobilinogen,Urine 0.2 EU/dl (0.2)
[2024-09-18 08:33] LABS: Bacteria,Urine 2+ /lpf
[2024-09-18 08:34] LABS: Calcium Oxalate Crystals,Urine 1+ /lpf
== END 2024-09-18 23:59 | disposition home or self-care (01) ==
LOC: RAD 07:11
PROVIDERS: PCP Internal Medicine; Visit Provider Internal Medicine
DX: R10.9 Unspecified abdominal pain (principal); M54.50 Low back pain, unspecified; K59.00 Constipation, unspecified; R31.29 Other microscopic hematuria
CPT/HCPCS: 74018; 81001; 87086

== ENCOUNTER 2025-03-19 10:10 | Outpatient (CLI) | payer OTHER, SELFPAY ==
--- OUTSIDE RECORDS SUMMARY | 2025-03-19 08:00 | XMS_ITS | Encounter Summary ---
Author Organization [facility] Address [address] [place] [address] Care Team Providers Care Hand Mold Maker Name Role Phone Du Humphries MD Primary Care Provider [phone] Reason for Referral * Consultation (Routine) - Authorized Specialty Diagnoses / Procedures Referred By Contac t Referred To Contact Diagnoses Graves disease Hyperthyroidism Ignacio Enciso MD [address] [place] [address] Phone: tel: fax: Referral ID Status Reason Start Date Expiration Date V isits Requested Visits Authorized [id number] Authorized 03/19/2025 09/18/2026 1 1 Reason for Visit * Reason Comments Follow-up Encounter Details Date Type Department Care Team (Late st Contact Info) Description 03/19/2025 8:00 AM EDT Office Visit Professional [facility] [address] [place] [address] Ignacio Enciso MD [address] [facility] [address] [place] [address] Graves disease (Primary Dx); Hyperthyroidism; Other fatigue Social History Tobacco Use Types Packs/Day Years Used Date Smoking Tobacco: Never Smokeless Tobacco: Never Alcohol Use Standard Drinks/Week Comments Never 0 (1 standard drink = 0.6 oz pur e alcohol) PHQ-2 Answer Date Recorded Patient Health Questionnaire-2 Score 0 02/09/2024 Comments Unknown Sex and Gender Information Value Date Recorded Sex Assigned at Not on file Legal Sex Female 8:33 PM EDT Gender Identity Not on file Sexual Orientation Not on file documented as of this encounter Last Filed Vital Signs Vital Sign Reading Time Taken Comments Blood Pressure 107/77 03/19/2025 7:47 AM EDT Pulse 77 03/19/2025 7:47 AM EDT Temperature - - Respiratory Rate - - Oxygen Saturation 96% 03/19/2025 7:47 AM EDT Inhaled Oxygen Concentration - - Weight 136 kg (300 lb 4.3 oz) 03/19/2025 7:47 AM EDT Height 175.3 cm (5' 9 ) 03/19/2025 7:47 AM EDT Body Mass Index 44.34 03/19/2025 7:47 AM EDT documented in this encounter Miscellaneous Notes * Patient Instructions - Ignacio Enciso MD - 03/19/2025 8:00 AM EDT It was a pleasure meeting you today! Let us get the labs Please return to the clinic in 6 months * Progress Notes - Ignacio Enciso MD - 03/19/2025 8:00 AM EDT Subjective Verónica Chappell is a 49 y.o., female here for follow up for Graves Disease. Interval History Last Visit:02.09.2024 Since last visit the patient lost to follow up She was still having annual follow up with PCP to check TFT's She reports feeling fatigued Current regimen: MMI 10mg daily She reports hungry all the time She feels no motivation She is still having monthly menses She is no longer on biotin She sleeps well and does not snore - feels rested when she wakes up HYPERTHYROIDISM: She reports that she was diagnosed with Graves Disease in 2020 She reports that she was asymptomatic and was found on routine blood-work. She is currently on MMI 10mg daily. Currently, Weight Changes: Denied, had recent bariatric surgery Changes in Bowel Movements: Denied Anxiety: Denied Tremor: Denied Palpitations: Denied Heat Intolerance: Denied There is no history of any medication known to cause hyperthyroidism. She denies taking any iodine, kelp, or thyroid hormone support supplementation. She took probiotic She is has started biotin and collagen for hair loss due to sleeve gastrectomy done on 12.14.2023 Contains Biotin 5000mcg daily. 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 [employer] Date TSH FT4 TT3 TSI TRAb TPO Ab Old New 3.18.21 0.02 1.31 FT3 4.7 TSI 1.18 (<0.55) 6.25.21 0.033 1.59 FT3 5.31 (2-4.4) MMI 5 10.18.21 0.180 1.55 FT3 5.24 MMI 5 MMI 10 5.20.22 5.84 1.08 FT3 3.05 MMI 10 MMI 7.5 12.9.22 0.316 1.58 FT3 5.1 MMI 7.5 MMI 7.5 5.29.24 0.02 3.42 238 H MMI 7.5 MMI 10 8.1.24 <0.02 1.32 168 MMI 10 1.9.25 0.02 1.24 164 0.83 H Folate > 20 B12 357 25D 65.7 MMI 10 Past Medical History: Diagnosis Date Acid reflux Hyperthyroidism Psoriasis Past Surgical History: Procedure Laterality Date BARIATRIC SURGERY GASTRIC BYPASS HYSTERECTOMY TONSILECTOMY, ADENOIDECTOMY, BILATERAL MYRINGOTOMY AND TUBES Current Outpatient Medications: calcium carbonate (Os-Carlos) 1250 (500 Ca) MG chewable tablet, Chew 1 tablet (1,250 mg) 1 (one) time each day., Disp: , Rfl: cholecalciferol (Vitamin D3) 25 MCG (1000 UT) tablet, Take 1 tablet (1,000 Units) by mouth 1 (one) time each day., Disp: , Rfl: clindamycin (Cleocin T) 1 % external solution, APPLY TO INVOLVED SKIN TWICE DAILY NEEDED, Disp: , Rfl: ketoconazole (NIZOral) 2 % shampoo, APPLY TOPICALLY TO THE SCALP 2 TIMES A WEEK NEEDED FOR PSORIASIS, Disp: , Rfl: methIMAzole (Tapazole) 10 MG tablet, Take 1 tablet by mouth daily. PLEASE MAKE AN APPOINTMENT FOR MORE REFILLS., Disp: 74 tablet, Rfl: 0 montelukast (Singulair) 10 MG tablet, Take 1 tablet (10 mg) by mouth 1 (one) time each day., Disp: , Rfl: Multiple Vitamin (Quintabs) tablet, Take 1 tablet by mouth., Disp: , Rfl: omeprazole (PriLOSEC) [address] capsule, Take 1 capsule (40 mg) by mouth Daily., Disp: , Rfl: Probiotic Product (Probiotic 10 Ultra Strength) capsule, Take 1 tablet by mouth 1 (one) time each day., Disp: , Rfl: albuterol 108 (90 Base) MCG/ACT inhaler, Inhale 1 puff every 6 (six) hours if needed. (Patient not taking: Reported on 03/19/2025), Disp: , Rfl: senna (Senokot) 8.6 MG tablet, Take 2 tablets (17.2 mg) by mouth 1 (one) time each day. (Patient not taking: Reported on 03/19/2025), Disp: , Rfl: Allergies Allergen Reactions Clindamycin Swelling throat spasms Morphine And Codeine Anaphylaxis, Other - please document in the comment field and Swelling Tramadol Hives and Rash Does not remember reaction Enz-Nfxg-Qssq Buffered Nausea Latex Rash Nsaids Other - please document in the comment field Due to weight loss surgery, patient is unable to use this medication Ondansetron Other - please document in the comment field sts causes constipation Penicillins Rash As a baby, unknown reaction Patient states she has never taken medication, but all family members have had a severe reaction Topiramate Other - please document in the comment field Sedation and moodieness reports that she has never smoked. She has never used smokeless tobacco. She reports that she does not drink alcohol and does not use drugs. Family History Problem Relation Name Age of Onset Osteoporosis Mother No Known Problems Father There is no additional family hx of hyperthyroidism, hypothyroidism or goiter. Additionally, there is no family hx of autoimmune disease. Review of Systems: .Review of Systems Constitutional: Negative for chills and fever. Respiratory: Negative for shortness of breath. Cardiovascular: Negative for chest pain. Gastrointestinal: Negative for nausea and vomiting. A complete ROS demonstrated all other systems negative in detail Objective Physical Exam: BP 107/77 Pulse 77 Ht 1.753 m (5' 9 ) Wt 136 kg (300 lb 4.3 oz) BMI 44.34 kg/m?? GEN:Sitting up comfortably, well appearing, non-Cushingoid EYES: sclera anicteric, extraocular motion grossly intact HENT: OP clear Neck: no palpable abnormalities in the thyroid; non-tender submandibular and parotid salivary glands; no supraclavicular fat pads Lymphatic: normal anterior, posterior and supraclavicular cervical lymph nodes PULM: No increased work of breathing, completing full sentences, symmetric chest rise CV: Normal rate, regular rhythm EXT: Warm well perfused NEURO: A&Ox4. No dysarthria. Moving all extremities voluntarily SKIN: normal temperature/texture, no ecchymoses; normal pigmentation, PSYCH: normal mood and affect I have reviewed prior records. Assessment/Plan Diagnoses and all orders for this visit: Graves disease Hyperthyroidism Elevated TSI in 2020 c/w Graves Disease Continue MMI 10mg daily for now Check TSH, FT4 and T3 now to assess dose adequacy Check TRAB now to assess titers Check CMP and CBC to eval LFT's and ANC Fatigue Check iron studies I have answered all of my patient's questions to the best of my ability. RTC in 6 months Orders Placed This Encounter Procedures CBC and Differential Comprehensive Metabolic Panel, Plasma Ferritin, Serum Free T4, Plasma Iron & Total Iron Binding Capacity, Plasma (Includes Transferrin) T3 Thyroid Stimulating Hormone Receptor Antibody Thyroid Stimulating Hormone, Plasma Follow Up [facility] I have answered my patient's questions to the best of my ability and have encouraged her to call orsend a message through with any additional questions. Ignacio Enciso MD 03/19/2025 9:18 AM Time Spent: I personally spent a total of 32 minutes on this encounter. This time includes face to face with patient, counseling and discussion and/or coordination of care. documented in this encounter Plan of Treatment Upcoming Encounters Date Type Department Care Team (Late st Contact Info) Description 09/19/2025 8:00 AM EST Office Visit [facility] [address] [place] [address] Ignacio Enciso MD [address] [facility] [address] [place] [address] Scheduled Orders Name Type Priority Associated Diagnoses Orde r Schedule CBC and Differential Lab Routine Graves disease Expected: 03/19/2025, Expires: 09/20/2026 Comprehensive Metabolic Panel, Plasma Lab Routine Graves disease Expected: 03/19/2025, Expires: 09/20/2026 Ferritin, Serum Lab Routine Hyperthyroidism Expected: 03/19/2025, Expires: 09/20/2026 Free T4, Plasma Lab Routine Graves disease Expected: 03/19/2025, Expires: 09/20/2026 Iron & Total Iron Binding Capacity, Plasma (Includes Transferrin) Lab Routine Hyperthyroidism Expected: 03/19/2025, Expires: 09/20/2026 T3 Lab Routine Graves disease Expected: 03/19/2025, Expires: 09/20/2026 Thyroid Stimulating Hormone Receptor Antibody Lab Routine Graves disease Expected: 03/19/2025, Expires: 09/20/2026 Thyroid Stimulating Hormone, Plasma Lab Routine Graves disease Expected: 03/19/2025, Expires: 09/20/2026 Scheduled Referrals Name Type Priority Associated Diagnoses Orde r Schedule Follow Up [facility] Outpatient Referral Routine Graves disease Hyperthyroidism Expected: 09/19/2025, Expires: 09/20/2026 documented as of this encounter Visit Diagnoses Diagnosis Graves disease- Primary Toxic diffuse goiter without mention of thyrotoxic crisis or storm Hyperthyroidism Thyrotoxicosis without mention of goiter or other cause, without mention of thyrotoxic crisis or storm Other fatigue documented in this encounter Additional Health Concerns Assessment Noted Time A fall risk assessment has been complete d for the patient 03/19/2025 7:50 AM EDT A Body Mass Index follow-up plan has been documented for the patient 03/19/2025 8:44 AM EDT documented as of this encounter Care Teams Hand Mold Maker Relationship Specialty Start Date End Date Du Humphries MD [address] [place] [address] PCP - General 12/22/23 documented as of this encounter
--- OUTSIDE RECORDS SUMMARY | 2025-03-19 10:46 | XMS_ITS | Encounter Summary ---
Author Organization [facility] Address [address] [place] [address] Care Team Providers Care Spice Blender Name Role Phone Binh Ziegler MD Unavailable [phone] Vera Salcedo APRN Unavailable [phone] Encounter Details Date Type Department Care Team (Late st Contact Info) Description 12/16/2023 Orders Only Main Operating Room [address] [facility] [place] [address] Binh Ziegler MD [address] [place] [address] Morbid obesity (Primary Dx) Social History Tobacco Use Types Packs/Day Years Used Date Smoking Tobacco: Former Cigarettes 1 20 0 10/25/1997 - 10/25/2017 Passive Smoke Exposure: Never Smokeless Tobacco: Never Alcohol Use Standard Drinks/Week Comments Never 0 (1 standard drink = 0.6 oz pur e alcohol) [facility] Utilities Answer Date Recorded In the past 12 months has e electric, gas, oil, or water company threatened to shut off services in your home? No 12/14/2023 Humiliation, Afraid, Rape, and Kick questionnair e Answer Date Recorded Within the last year, have y ou been afraid of your partner or ex-partner? No 12/14/2023 Emotionally Abused Not on file 12/14/2023 Physically Abused Not on file 12/14/2023 Sexually Abused Not on file 12/14/2023 Hunger Vital Sign Answer Date Recorded Worried About Running Out of Food in the Last Ye ar Not on file 12/14/2023 Within the past 12 months, t he food you bought just didn't last and you didn't have money to get more. Never true 12/14/2023 PRAPARE - Transportation Answer Date Re corded In the past 12 months, has l ack of transportation kept you from medical appointments or from getting medications? No 12/14/2023 Lack of Transportation (Non-Medical) Not on file 12/14/2023 Housing Stability Vital Sign Answer Isael e Recorded Unable to Pay for Housing in the Last Year Not o n file 12/14/2023 Number of Places Lived in the Last Year Not on f ile 12/14/2023 In the last 12 months, was t here a time when you did not have a steady place to sleep or slept in a skilled nursing (including now)? No 12/14/2023 Comments No Sex and Gender Information Value Date Recorded Sex Assigned at Female 08/20/2023 9:24 AM EST Legal Sex Female 10:11 AM EDT Gender Identity Female 08/20/2023 9:24 AM EST Sexual Orientation Straight 08/20/2023 9: 24 AM EST documented as of this encounter Plan of Treatment Not on file documented as of this encounter Visit Diagnoses Diagnosis Morbid obesity (CMS/HCC)- Primary Morbid obesity documented in this encounter Care Teams Spice Blender Relationship Specialty Start Date End Date Binh Ziegler MD [address] [address] General Surgery 12/02/23 Vera Salcedo APRN [address], [place] [address] Nurse Practitioner 12/27/23 documented as of this encounter
--- OUTSIDE RECORDS SUMMARY | 2025-03-19 10:46 | XMS_ITS | Clinical Summary ---
Author Organization [facility] Address [address] [place] [address] Care Team Providers Care Button Bradder Name Role Phone Binh Ziegler MD Unavailable MatiasVera APRN Unavailable [phone] Allergies Active Allergy Reactions Criticality Noted Date Comments Clindamycin Swelling 08/11/2023 throat spasms Latex, Natural Rubber Rash 08/11/2023 Morphine Anaphylaxis 08/11/2023 Penicillins None 08/11/2023 Patient states she has never taken medication, but all family members have had a severe reaction Tramadol Hives 08/11/2023 Ondansetron Other (See Comments) 12/01/2023 sts causes constipation Medications albuterol (VENTOLIN HFA) 90 mcg/Actuation inhaler Take 1 Puff by inhalation Every 6 hours as needed for Shortness of breath. Active -NONFORMULARY/H ELP MEDICATION- Once Daily. 600 mg calcium plus vitamin D3 20 mg Active -NONFORMULARY/H ELP MEDICATION- Once Daily. IO strain Pro-biotic Active montelukast (SINGULAIR) 10 mg tablet Take 10 mg by mouth Once Daily. Active omeprazole (PRILOSEC) [address] capsule Take 40 mg by mouth Once Daily. Active methIMAzole (TAPAZOLE) 5 mg tablet Take 5 mg by mouth Once Daily. Patient reports she takes 7.5 mg daily Active polyethylene glycol 3350 (MIRALAX) 17 gram packet Take 17 g by mouth As needed. Active -NONFORMULARY/H ELP MEDICATION- Tylenol prn Ac tive amLODIPine-olme sartan (WHITNEY) 5-40 mg per tablet Take 1 Tablet by mouth Once Daily. Active multivitamin with folic acid (THERA) tablet Take 1 Tablet by mouth Once Daily. Women's one a day Active ergocalciferol, vitamin D2, (VITAMIN D PO) Take by mouth Once Daily. Active promethazine (PHENERGAN) 25 mg tabletIndicatio ns:Morbid obesity (CMS/HCC) Take 1 Tablet by mouth Every 4 to 6 Hours as needed for Nausea. 15 Tablet Active Active Problems Problem Noted Date Diagnosed Date Hiatal hernia 11/24/2023 Hypertension, essential 08/23/2023 Abdominal obesity and metabolic syndrome 024 Gastroesophageal reflux dise ase with esophagitis without hemorrhage 08/11/2023 BMI 50.0-59.9, adult 08/11/2023 Primary hypertension 08/11/2023 Morbid obesity 08/11/2023 Family History Medical History Relation Name Comments No Known Problems Father UNKNOWN No Known Problems Mother Relation Name Status Comments Brother Alive Father Alive Mother Alive Social History Tobacco Use Types Packs/Day Years Used Date Smoking Tobacco: Former Cigarettes 1 20 0 10/25/1997 - 10/25/2017 Passive Smoke Exposure: Never Smokeless Tobacco: Never Tobacco Cessation:Counseling Given: Not Answered Alcohol Use Standard Drinks/Week Comments Never 0 (1 standard drink = 0.6 oz pur e alcohol) [facility] Utilities Answer Date Recorded In the past 12 months has e [employer], gas, oil, or water [employer] threatened to shut off services in your [...] place to sleep or slept in a long term (including now)? No 12/14/2023 Comments No Sex and Gender Information Value Date Recorded Sex Assigned at Female 08/20/2023 9:24 AM EST Legal Sex Female 10:11 AM EDT Gender Identity Female 08/20/2023 9:24 AM EST Sexual Orientation Straight 08/20/2023 9: 24 AM EST Last Filed Vital Signs Vital Sign Reading Time Taken Comments Blood Pressure 101/70 12/27/2023 10:23 AM EDT Pulse 134 12/27/2023 10:23 AM EDT Temperature 36.5 C (97.7 F) 12/27/2023 10:23 AM EDT Respiratory Rate 18 12/15/2023 10:2 0 AM EDT Oxygen Saturation 98% 12/27/2023 10: 23 AM EDT Inhaled Oxygen Concentration - - Weight 149.1 kg (328 lb 9.6 oz) 024 10:23 AM EDT Height 175.3 cm (5' 9 ) 12/27/2023 10:2 3 AM EDT Body Mass Index 48.53 12/27/2023 10:23 AM EDT Plan of Treatment Health Maintenance Due Date Last Done Comments COLOGUARD 1976 COLONOSCOPY 1976 Colorectal Screening Combination 1976 FIT 1976 HEP C SCREENING 1976 PAP SMEAR EVERY 3 YR (Cervical Cancer Screen) 1976 SIGMOIDOSCOPY 1976 COVID-19 Vaccine ( season) 2024 05/27/2022, 05/02/2021, 09/09/2020, Additional history exists ANNUAL WELLNESS EXAM 09/16/2024 09/15/2023 ANNUAL MAMMOGRAM 09/28/2024 09/28/2023 INFLUENZA VACCINE (#1) 2025 04/19/2020, 2018 DTAP/TDAP/TD VACCINE (2 - Td or Tdap) 07/03/2032 07/03/2022 HEP A VACCINE Aged Out 01/12/2019, 07/09/2018 No l onger eligible based on patient's age to complete this topic HIB VACCINE Aged Out No longer eligi ble based on patient's age to complete this topic ROTOVIRUS VACCINE Aged Out No longer eligible based on patient's age to complete this topic Medical Devices Implanted Type Area Cemetery Manager Device Identifier Shelf Expiration Date Model / Serial / Lot Ethicon Green Reload Bx/12 Implanted:Qty: 1 on 12/14/2023 by Binh Ziegler MD at [facility] N/A: Abdomen ETHICON 11/22/2025 [id number] / / [id number] Ethicon Green Reload Bx/12 Implanted:Qty: 5 on 12/14/2023 by Binh Ziegler MD at [facility] N/A: Abdomen ETHICON 05/25/2026 [id number] / / [id number] Endopath Staple Line 60mm Bx/6 [id number] Implanted:Qty: 6 on 12/14/2023 by Binh Ziegler MD at [facility] N/A: Abdomen [employer] 11/22/2024 [id number] / / [id number] Insurance Advance Directives * Full Code (Latest Code Status on File) Date Activated Date Inactivated Comments 12/14/2023 11:10 AM 12/15/2023 8:17 PM * Full Code Date Activated Date Inactivated Comments 09/10/2023 7:09 AM 09/10/2023 12:44 PM Care Teams Button Bradder Relationship Specialty Start Date End Date Binh Ziegler MD [address] [place] [id number] General Surgery 12/02/23 Vera Salcedo APRN [address], [place] [address] Nurse Practitioner 12/27/23
--- OUTSIDE RECORDS SUMMARY | 2025-03-19 10:46 | XMS_ITS | Clinical Summary ---
Author Organization [facility] Address [address] [place] [address] Care Team Providers Care Content Producer Name Role Phone Du Humphries MD Primary Care Provider [phone] Allergies Active Allergy Reactions Criticality Noted Date Comments [id number] Buffered Nausea 12/30/2022 Clindamycin Swelling High 08/11/2023 throat spasms Latex Rash Low 12/30/2022 Morphine And Codeine Anaphylaxis,Other - please document in the comment field,Swelling High 06/11/2017 Nsaids Other - please document in the comment field Low 02/09/2024 Due to weight loss surgery, patient is unable to use this medication Ondansetron Other - please document in the comment field Low 12/01/2023 sts causes constipation Penicillins Rash Low 06/11/2017 As a baby, unknown reaction Patient states she has never taken medication, but all family members have had a severe reaction Topiramate Other - please document in the comment field Low 05/28/2022 Sedation and moodieness Tramadol Hives,Rash Medium 06/11/2017 Does not remember reaction Medications albuterol 108 (90 Base) MCG/ACT inhaler Inhale 1 puff every 6 (six) hours if needed. Active cholecalciferol (Vitamin D3) 25 MCG (1000 UT) tablet Take 1 tablet (1,000 Units) by mouth 1 (one) time each day. Active clindamycin (Cleocin T) 1 % external solution APPLY TO INVOLVED SKIN TWICE DAILY NEEDED 3 Active ketoconazole (NIZOral) 2 % shampoo APPLY TOPICALLY TO THE SCALP 2 TIMES A WEEK NEEDED FOR PSORIASIS 3 Active montelukast (Singulair) 10 MG tablet Take 1 tablet (10 mg) by mouth 1 (one) time each day. 4 Active Multiple Vitamin (Quintabs) tablet Take 1 tablet by mouth. Active omeprazole (PriLOSEC) [address] capsule Take 1 capsule (40 mg) by mouth Daily. Active senna (Senokot) 8.6 MG tablet Take 2 tablets (17.2 mg) by mouth 1 (one) time each day. 4 Active Probiotic Product (Probiotic 10 Ultra Strength) capsule Take 1 tablet by mouth 1 (one) time each day. Active calcium carbonate (Os-Carlos) 1250 (500 Ca) MG chewable tablet Chew 1 tablet (1,250 mg) 1 (one) time each day. Active methIMAzole (Tapazole) 10 MG tabletIndicatio ns:Graves disease Take 1 tablet by mouth daily. PLEASE MAKE AN APPOINTMENT FOR MORE REFILLS. 74 tablet 5 Active Active Problems Problem Noted Date Diagnosed Date Cyst, dermoid, face 05/29/2024 Encounters Date Type Department Care Team Description 03/19/2025 8:00 AM EDT Office Visit [facility] [address], [address] [place] [address] Ignacio Enciso MD Graves disease (Primary Dx); Hyperthyroidism; Other fatigue 03/19/2025 Travel 01/02/2025 Orders Only [facility] [address], [address] [place] [id number] Ignacio Enciso MD Graves disease (Primary Dx); Hyperthyroidism 01/02/2025 Refill [facility] [address], [address] [place] [id number] Ignacio Enciso MD from Last 3 Months Immunizations Immunization Administration Dates Next Due Hep A, Adult 01/12/2019,07/09/2018 Influenza, Unspecified 05/17/2024,05/26/2023, Influenza, seasonal, injectable 04/19/2020,06/03 Moderna COVID-19 Vaccine Bivalent 6months+ 05/27 Pneumococcal 20-midgalia Conj Vaccine 07/03/2022 SARS-CoV-2, Unspecified 05/17/2024 Tdap 07/03/2022 Family History Medical History Relation Name Comments No Known Problems Father Osteoporosis Mother Relation Name Status Comments Father Mother Social History Tobacco Use Types Packs/Day Years Used Date Smoking Tobacco: Never Smokeless Tobacco: Never Tobacco Cessation:Counseling Given: [...] on file Sexual Orientation Not on file Last Filed Vital Signs Vital Sign Reading [...] Mass Index 44.34 03/19/2025 7:47 AM EDT Plan of Treatment Upcoming Encounters Date Type Department Care Team (Late st Contact Info) Description 09/19/2025 8:00 AM EST Office Visit [facility] [address], [address] [place] [address] [place] [address] [place] [address] [address] [place] [address] Health Maintenance Due Date Last Done Comments [facility]-HIV Screening 1976 [facility]-Infant/Child/Adol SDOH Screenings 1976 [facility]- SDOH Screenings 1994 [facility]-Adult SDOH Screenings 1994 [facility]-Hepatitis B Vaccines (1 of 3 - 19+ 3-dose series) 1995 [facility]-Zoster Vaccines (1 of 2) 1995 CT Colonography 2021 Colonoscopy 2021 FIT-DNA 2021 FIT 2021 FOBT 2021 Sigmoidoscopy 2021 [facility]-Colorectal Cancer Screening 2021 [id number] Vaccine (6 - Pfizer risk 2023- season) 2024 05/17/2024, 05/27/2022, 05/02/2021, Additional history exists [facility]-Depression Screening 02/08/2025 02/09/2024 [facility]-Influenza Vaccine (#1) 03/26/202505/17, 05/26/2023, 04/11/2021, Additional history exists [facility]-DTaP,Tdap,and Td Vaccines (2 - Td or Tdap) 07/03/2032 07/03/2022 [facility]-Hepatitis A Vaccines Aged Out 01/12/2019, 06/25 No longer eligible based on patient's age to complete this topic [facility]-Hepatitis C Screening Completed 07/03/2022 [facility]-Pneumococcal Vaccine: Pediatrics (0 to 5 Years) and At-Risk Patients (6 to 49 Years) Completed 07/03/2022 [facility]-Obesity Intervention Completed 025, 09/15/2024, 07/10/2024, Additional history exists HPV Vaccines Aged Out No longer eligi ble based on patient's age to complete this topic [facility]-HIB Vaccines Aged Out No longer e ligible based on patient's age to complete this topic [facility]-IPV Vaccines Aged Out No longer e ligible based on patient's age to complete this topic [facility]-Rotavirus Vaccines Aged Out No lo nger eligible based on patient's age to complete this topic [place] [address] [place] [address] Care Teams Content Producer Relationship Specialty Start Date End Date Du Humphries MD [address] [place] [address] [place] [address] PCP - General 12/22/23
--- OUTSIDE RECORDS SUMMARY | 2025-03-19 10:46 | XMS_ITS | Encounter Summary ---
Author Organization [facility] Address [address] [place] [address] Care Team Providers Care Pest Control Service Sales Agent Name Role Phone Binh Ziegler MD Unavailable Vera Salcedo APRN Unavailable [phone] Reason for Visit * Reason Onset Date Comments Other 09/17/2023 Encounter Details Date Type Department Care Team (Late st Contact Info) Description 09/17/2023 Telephone [facility] Surgical Weight Loss [address] [place] [address] Other Social History Tobacco Use Types Packs/Day Years Used Date Smoking Tobacco: Former Cigarettes 1 20 0 10/25/1997 - 10/25/2017 Passive Smoke Exposure: Never Smokeless Tobacco: Never Alcohol Use Standard Drinks/Week Comments Never 0 (1 standard drink = 0.6 oz pur e alcohol) Comments No Sex and Gender Information Value Date Recorded Sex Assigned at Female 08/20/2023 9:24 AM EST Legal Sex Female 10:11 AM EDT Gender Identity Female 08/20/2023 9:24 AM EST Sexual Orientation Straight 08/20/2023 9: 24 AM EST documented as of this encounter Miscellaneous Notes * Telephone Encounter - [address] - 09/17/2023 11:36 AM EST Pt called. Pt does not want to schedule 2 of 2 SWL appt at this time with JASSON. Pt states she is not at goal weight. Pt states will call in about a week to schedule appt. [address],LD,CDCES documented in this encounter Plan of Treatment Not on file documented as of this encounter Visit Diagnoses Not on filedocumented in this encounter Care Teams Pest Control Service Sales Agent Relationship Specialty Start Date End Date Binh Ziegler MD [address] [id number] General Surgery 12/02/23 Vera Salcedo APRN [address], [place] [address] Nurse Practitioner 12/27/23 documented as of this encounter
--- OUTSIDE RECORDS SUMMARY | 2025-03-19 10:46 | XMS_ITS | Encounter Summary ---
Author Organization [facility] Address [address] [place] [address] Care Team Providers Care Digital Advertising Analyst Name Role Phone Du Humphries MD Primary Care Provider [phone] Encounter Details Date Type Department Care Team (Latest Contact Info) Description 03/19/2025 Travel Social History Tobacco Use Types Packs/Day Years [...] on file documented as of this encounter Plan of Treatment Upcoming Encounters Date Type Department Care Team (Late st Contact Info) Description 09/19/2025 8:00 AM EST Office Visit Professional [facility] [address] [place] [address] Ignacio Enciso MD [address] [place] [address] [address] [place] [address] documented as of this encounter Visit Diagnoses Not on filedocumented in this encounter Additional Health Concerns Assessment Noted Time A fall risk assessment has been complete d for the patient 03/19/2025 7:50 AM EDT A Body Mass Index follow-up plan has been documented for the patient 03/19/2025 8:44 AM EDT documented as of this encounter Care Teams Digital Advertising Analyst Relationship Specialty Start Date End Date Du Humphries MD [address] [place] [address] PCP - General 12/22/23 documented as of this encounter
--- OUTSIDE RECORDS SUMMARY | 2025-03-19 10:46 | XMS_ITS | Clinical Summary ---
Author Organization [facility] Address [address] [place] [address] Care Team Providers Care Standards Analyst Name Role Phone Du Humphries MD Primary Care Provider [phone] Allergies Active Allergy Reactions Criticality Noted Date Comments Codeine Provider Review Needed 05/28/2022 Morphine Provider Review Needed 05/28/2022 Morphine And Codeine Swelling Medium 06/11/2017 Penicillins Other (See Comments) Low 06/11/2017 As a baby, unknown reaction Topiramate Other (See Comments) 05/28/2022 Sedation and moodieness Tramadol Other (See Comments) Low 06/11/2017 Does not remember reaction Medications albuterol (PROVENTIL HFA;VENTOLIN HFA) 108 (90 Base) MCG/ACT inhaler Inhale 2 puffs Every 4 (Four) Hours As Needed for Wheezing or Shortness of Air. 1 inhaler 7 Active Additional Information Patient taking differently:2 puff InhalationAs Needed, Wheezing, Shortness of Air, Reported on 09/15/2024 Probiotic Product (PROBIOTIC-10 PO) Take 1 tablet by mouth Daily. Active Cholecalciferol 25 MCG (1000 UT) tablet Take 1 tablet by mouth Daily. Active acetaminophen (TYLENOL) 325 MG tablet TAKE 3 TABLETS BY MOUTH EVERY 8 HOURS FOR 5 DAYS 4 Active methIMAzole (Tapazole) 10 MG tabletIndicatio ns:Hyperthyroid ism Take 1 tablet by mouth Daily. 90 tablet 3 4 Active cetirizine (zyrTEC) 10 MG tabletIndicatio ns:Seasonal allergic rhinitis due to pollen Take 1 tablet by mouth Daily. 90 tablet 3 4 Active fluticasone (FLONASE) 50 MCG/ACT nasal sprayIndication s:Seasonal allergic rhinitis due to pollen Administer 2 sprays into the nostril(s) as directed by provider Daily. 16 g 5 4 Active cyclobenzaprine (FLEXERIL) 10 MG tabletIndicatio ns:Acute right flank pain,Acute right-sided low back pain without sciatica 0.5-1 tablet orally 3 times daily as needed for muscle spasm/pain, cautioned sedation 30 tablet 5 Active omeprazole (priLOSEC) 40 MG capsule TAKE 1 CAPSULE BY MOUTH EVERY DAY 90 capsule 1 5 Active ketoconazole (NIZORAL) 2 % shampooIndicati ons:Psoriasis APPLY TOPICALLY TO THE SCALP 2 TIMES A WEEK NEEDED FOR PSORIASIS 120 mL 5 5 Active FeroSul 325 (65 Fe) MG tabletIndicatio ns:Iron deficiency TAKE 1 TABLET BY MOUTH DAILY WITH BREAKFAST 90 tablet 1 5 Active montelukast (SINGULAIR) 10 MG tablet TAKE 1 TABLET BY MOUTH EVERY DAY 90 tablet 2 5 Active clindamycin (CLEOCIN T) 1 % external solutionIndicat ions:Hidradenit is suppurativa Apply to involved skin twice daily as needed 60 mL 2 5 Active Active Problems Problem Noted Date Diagnosed Date Acute right flank pain 09/15/2024 Assessment & Plan (09/15/2024 12:10 PM EST): 2-3-month history of intermittent nontraumatic right flank pain/upper lumbar pain with some radiation to the right lateral abdomen but not into the groin, occurring every several days without provocation, lasting typically for several hours to days before spontaneously resolving, no other associated symptoms of fevers chills nausea vomiting dysuria hematuria frequency or incontinence, having longstanding history of constipation for which she takes a half capful of MiraLAX once a day still having a bowel movement only every 3 days on average. She is not aware of any pattern of this pain associate with her constipation. Status post normal colonoscopy in 10/2023. Exam quite unremarkable at this time. Clean-catch [id number] urinalysis with 2-3+ blood otherwise unremarkable. Differential would be occult kidney stone, muscle spasm, less likely but cannot rule out gallstones, possible relationship to constipation. Plan check formal microscopic urinalysis with culture as indicated, KUB to assess for bowel gas pattern as well as any calcified kidney or ureteral stones as well as gallstones. Depending on test results we will make further recommendation accordingly. Treat acute symptoms with Tylenol, avoiding NSAIDs given history of sleeve gastrectomy last year Microscopic hematuria 09/15/2024 Assessment & Plan (09/15/2024 12:11 PM EST): Microscopic hematuria without signs of infection such as dysuria hematuria pyuria or nitrates. Having history of intermittent right lower back and flank discomfort with some radiation to her abdomen. Possibly related to her microscopic hematuria noted on [id number] UA today. Obtain KUB initially to assess for any renal or ureteral stones, while obtaining formal microscopic urinalysis with culture as indicated. Make further recommendations depending on test results. Constipation 09/15/2024 Assessment & Plan (09/15/2024 12:10 PM EST): Patient with history of chronic constipation, currently taking MiraLAX one half capful daily having a bowel movement typically every 3 days. She notes with a full capful MiraLAX having diarrhea. I have advised her to titrate the dose of MiraLAX in order to maintain 1 or 2 soft bowel movements daily. Patient is status post a normal colonoscopy from 10/2023 with a 10-year follow-up recommended Meralgia paresthetica of right side 07/17/2024 Assessment & Plan (07/17/2024 3:41 PM EST): Reports several months of numbness on the right anterolateral thigh consistent with meralgia paresthetica. No associated pain. Anticipate improvement with weight loss, avoid tight fitting clothes at the belt line. Low back pain without sciatica 07/17/2024 Assessment & Plan (09/15/2024 12:10 PM EST): 2-3-month history of intermittent nontraumatic right flank pain/upper lumbar pain with some radiation to the right lateral abdomen but not into the groin, occurring every several days without provocation, lasting typically for several hours to days before spontaneously resolving, no other associated symptoms of fevers chills nausea vomiting dysuria hematuria frequency or incontinence, having longstanding history of constipation for which she takes a half capful of MiraLAX once a day still having a bowel movement only every 3 days on average. She is not aware of any pattern of this pain associate with her constipation. Status post normal colonoscopy in 10/2023. Exam quite unremarkable at this time. Clean-catch [id number] urinalysis with 2-3+ blood otherwise unremarkable. Differential would be occult kidney stone, muscle spasm, less likely but cannot rule out gallstones, possible relationship to constipation. Plan check formal microscopic urinalysis with culture as indicated, KUB to assess for bowel gas pattern as well as any calcified kidney or ureteral stones as well as gallstones. Depending on test results we will make further recommendation accordingly. Treat acute symptoms with Tylenol, avoiding NSAIDs given history of sleeve gastrectomy last year Seasonal allergic rhinitis due to pollen 024 Assessment & Plan (07/17/2024 3:42 PM EST): Breakthrough symptoms taking Singulair 10 mg nightly. Add Zyrtec and Flonase as needed. Advised if not improving. Cyst, dermoid, face 05/29/2024 History of sleeve gastrectomy 12/22/2023 Overview (12/22/2023): Status post laparoscopic sleeve gastrectomy at [facility] in [facility] by Dr. Binh Ziegler on 12/14/2023 Assessment & Plan (07/17/2024 3:40 PM EST): Status post laparoscopic sleeve gastrectomy in [facility] by Dr. Binh Ziegler on 12/14/2023. She has lost 27 pounds in the last 7 months. Will update screening labs including for nutritional deficiencies, patient indicating she has not had any check for some time now. She does have some subjective breaking down of her nails and is concerned that deficiency could be causing this. She does take vitamin D calcium and iron supplement. Assessment & Plan (12/22/2023 1:25 PM EDT): 8 days status post laparoscopic sleeve gastrectomy by Dr. Binh Ziegler at [facility] in [facility] on 12/14/2023, 8 days ago, postoperatively doing well, having lost by history 17 pounds in weight in the last week since her surgery. She is following standard postsurgical diet, no problems at this time. Keep follow-up with bariatric surgeon next week as scheduled. Preop examination 09/15/2023 Assessment & Plan (09/15/2023 1:31 PM EST): Patient being evaluated for preoperative clearance for anticipated back surgery to be scheduled sometime in late October or early November by history with Dr. Binh Ziegler of bariatric surgery in [facility]. Patient has had prior surgeries with general anesthesia without any complications. She has had preliminary prebariatric surgical evaluations including psychiatric, EGD, dental and dietary evaluations. EKG today unremarkable. Obtain preliminary lab testing and assuming satisfactory will be given surgical clearance. Encounter for general adult medical examination with abnormal findings 09/15/2023 Assessment & Plan (09/15/2023 1:34 PM EST): Pleasant 48-year-old female presenting for complete physical and preoperative evaluation prior to anticipated upcoming bariatric surgery per patient to be scheduled in late October or early November by Dr. Binh Ziegler of bariatric surgery in [facility]. She denies any acute physical concerns, noting her primary health risk is her morbid obesity for which she has previously failed to maintain any sustained significant weight loss using previous weight loss medication and lifestyle efforts. She requires preoperative lab testing, EKG today unremarkable, health maintenance includes need for initial colon cancer screening with colonoscopy, update mammogram noting Pap smear current with prevention coordinator from 01/2023, recommended updating influenza and COVID vaccines, and obtain pertinent laboratory testing. Vitamin D deficiency 09/15/2023 B-complex deficiency 09/15/2023 Assessment & Plan (09/15/2023 1:29 PM EST): Obtain preoperative B1 and B12 levels as requested by her bariatric surgeon. Screen for colon cancer 09/15/2023 Assessment & Plan (09/15/2023 1:30 PM EST): Refer for screening colonoscopy. Average risk. Encounter for screening mamm ogram for malignant neoplasm of breast 09/15/2023 Abdominal obesity and metabolic syndrome 024 Anxiety and depression 07/03/2022 Essential hypertension 07/03/2022 Assessment & Plan (09/15/2023 1:24 PM EST): Very satisfactory blood pressure control acutely as well as by history chronically taking amlodipine/olmesartan 5/40 mg daily. Continue efforts at healthy diet, and patient planning to pursue bariatric surgery to address her significant obesity, with anticipated weight loss that should benefit all of her health parameters including her blood pressure. Gastro-esophageal reflux disease without esophag itis 07/03/2022 Assessment & Plan (09/15/2023 1:30 PM EST): Recent EGD obtained preoperatively prior to bariatric surgery was unremarkable. She gets good symptom control taking omeprazole 40 mg daily. Generalized anxiety disorder 07/03/2022 Graves disease 07/03/2022 Assessment & Plan (07/17/2024 3:37 PM EST): Followed by [facility] currently taking Tapazole 10 mg daily. Reports several months having had normal thyroid function testing. Will repeat TSH and free T4. Assessment & Plan (12/22/2023 1:22 PM EDT): History of Graves' disease status post previous monitoring by [facility] endocrinology, reportedly this qa consultant group no longer covered by her insurance, we will refer now to [facility]. In the interim continue her Tapazole 5 mg taking 1.5 tablets or 7.5 mg daily, repeating thyroid testing in the interim and making further adjustment accordingly. Hyperthyroidism 07/03/2022 Assessment & Plan (09/15/2023 1:25 PM EST): History of Graves' disease with secondary hypothyroidism, currently taking Tapazole 5 mg at 1.5 tablets or 7.5 mg daily. Will update thyroid function testing, and given previous frontload driver no longer covered by her insurance, will make referral to an alternative frontload driver for routine follow-up. Mild intermittent asthma 07/03/2022 Assessment & Plan (12/22/2023 1:26 PM EDT): Doing well on Singulair prophylaxis. Continue same. Assessment & Plan (09/15/2023 1:37 PM EST): Well-controlled with Singulair 10 mg daily. Mixed hyperlipidemia 07/03/2022 Assessment & Plan (09/15/2023 1:24 PM EST): Update lipid profile and make further recommendation regarding treatment subsequently. Nicotine dependence, cigarettes, in remission Assessment & Plan (09/15/2023 1:37 PM EST): Abstaining from cigarette smoking by history for 6 years. Per request of bariatric surgeon, will obtain preoperative urine nicotine screen. Morbid (severe) obesity due to excess calories 1 09/03/2021 Assessment & Plan (07/17/2024 3:39 PM EST): Longstanding problem with obesity, patient historically having failed efforts at any significant weight loss despite diet and exercise as well as trial of phentermine Topamax and Ozempic. Status post laparoscopic sleeve gastrectomy on 12/14/[address] Binh Ziegler at [facility] in [facility]. Has had gradual measured weight loss, including 27 pounds since 11/2023. Continue current efforts at weight loss including diet and exercise. Assessment & Plan (12/22/2023 1:23 PM EDT): Longstanding problem with obesity, patient historically having failed efforts at any significant weight loss despite diet and exercise as well as trial of phentermine Topamax and Ozempic. Status post laparoscopic sleeve gastrectomy on 12/14/[address] Binh Ziegler at [facility] in [facility]. Georgie and recovery doing well. She has lost 17 pounds of weight by history since her surgery 8 days ago. She is pursuing appropriate post bariatric surgical diet. Follows up with bariatric surgeon on 12/27/2023. Taking multivitamin supplementation. Assessment & Plan (09/15/2023 1:31 PM EST): Longstanding problem, patient in the past having been treated with phentermine Topamax and Ozempic, either with lack of significant success or side effects. Clearly her significant obesity is creating significant health risks acutely as well as long-term, noting she does have a body habitus as well as neck circumference and Mallampati class IV intraoral anatomy which would put her at significant risk for sleep apnea though she denies related symptoms. She is an excellent candidate for bariatric surgery. She previously has self-referred herself to Dr. Binh Ziegler of bariatric surgery in [facility], having undergone preliminary preoperative screen including recent EGD, psychiatric evaluation, dietary counseling and dental evaluation, EKG today normal, obtaining routine lab testing as well as requested labs by Dr. Ziegler, with subsequent anticipated clearance for surgery sometime by history late September or early November 2023. Prediabetes 07/03/2022 Assessment & Plan (09/15/2023 1:28 PM EST): Hemoglobin A1c of 5.7% in 12/2022. Update testing. Anticipate resolution of her prediabetes including metabolic syndrome with upcoming bariatric surgery and subsequent anticipated significant weight loss. Resolved Problems Problem Noted Date Diagnosed Date Resolved Date Asymptomatic microscopic hematuria 07/17/2024 09/15/2024 Assessment & Plan (09/15/2024 12:08 PM EST): Microscopic hematuria without signs of infection such as dysuria hematuria pyuria or nitrates. Having history of intermittent right lower back and flank discomfort with some radiation to her abdomen. Possibly related. Obtain KUB initially to assess for any renal or ureteral stones, while obtaining formal microscopic urinalysis with culture as indicated. Make further recommendations depending on test results. Assessment & Plan (07/17/2024 3:42 PM EST): Screening [id number] urinalysis revealed 2+ microscopic hematuria but no significant leukocytes or nitrates. Obtain formal microscopic urinalysis, with culture as indicated per standard parameters Gastroesophageal reflux dise ase with esophagitis without hemorrhage 08/11/2023 4 Chronic constipation 07/03/2022 025 Assessment & Plan (09/15/2023 1:29 PM EST): Very minimal sporadic symptoms using MiraLAX on an as-needed basis. Also plan to update a routine colon cancer screening with colonoscopy Encounters Date Type Department Care Team Description 02/05/2025 [facility] PRIMARY CARE [address] [place] [address] [place] [address] Du Humphries MD Hidradenitis suppurativa 02/02/2025 [facility] PRIMARY [facility]ARE [address] [place] [address] [place] [phone] Du Humphries MD Iron deficiency 01/12/2025 [facility] PRIMARY [facility]ARE [address] [place] [address] [place] [phone] Du Humphries MD Psoriasis 01/03/2025 [facility] PRIMARY [facility]ARE [address] [place] [address] [place] [address] Du Humphries MD from Last 3 Months Immunizations Immunization Administration Dates Next Due COVID-19 (MODERNA) BIVALENT 12+YRS 05/27/2022 COVID-19 (PFIZER) Purple Cap Monovalent 05/02/20 21,09/09/2020,08/19/2020 COVID-19 (UNSPECIFIED) 05/17/2024 Flu Vaccine Intradermal Quad 18-64YR 04/19/2020 Fluzone (or Fluarix & Flulav al for VFC) >6mos 05/09/2019 Hepatitis A 01/12/2019,07/09/2018 Influenza Seasonal Injectable 04/19/2020 Influenza TIV (IM) 06/03/2018 Influenza, Unspecified 05/17/2024,05/26/2023, Pneumococcal Conjugate 20-Valent (PCV20) 022 Tdap 07/03/2022 Family History Medical History Relation Name Comments Lung cancer Paternal Grandfather Diabetes Paternal Grandmother Relation Name Status Comments Father Alive Mother Alive Paternal Grandfather Paternal Grandmother Social History Tobacco Use Types Packs/Day Years Used Date Smoking Tobacco: Every Day Cigarettes 1 25 Smokeless Tobacco: Never Tobacco Cessation:Ready to Q uit: Not Asked; Counseling Given: Not Answered Alcohol Use Standard Drinks/Week Comments Not Currently 0 (1 standard drink = 0.6 oz pur e alcohol) PHQ-2 Answer Date Recorded Retired PHQ-9: Brief Depression Severity Measure Score 0 01/08/2023 PHQ-2 Answer Date Recorded Patient Health Questionnaire-2 Score 0 09/15/2024 Comments No Sex and Gender Information Value Date Recorded Sex Assigned at Not on file Legal Sex Female 10:16 AM EST Gender Identity Not on file Sexual Orientation Not on file Last Filed Vital Signs Vital Sign Reading Time Taken Comments Blood Pressure 118/79 09/15/2024 11:00 AM EST Pulse 88 09/15/2024 11:00 AM EST Temperature 36.8 C (98.2 F) 09/15/2024 11:00 AM EST Respiratory Rate 18 07/17/2024 2:40 PM EST Oxygen Saturation 96% 09/15/2024 11:00 AM EST Inhaled Oxygen Concentration - - Weight 137 kg (301 lb 6.4 oz) 09/15/2024 11:00 A M EST Height 177.8 cm (5' 10 ) 09/15/2024 11:00 AM EST Body Mass Index 43.25 09/15/2024 11:00 AM EST Plan of Treatment Health Maintenance Due Date Last Done Comments Annual Gynecologic Pelvic an d Breast Exam 1976 COLOGUARD 2021 COLON CANCER SCREENING 5 YEA R SIGMOID[address]COPY [address] COLONOGRAPHY 2021 FECAL OCCULT BLOOD TEST 2021 FIT Testing (1 year) 2021 LIPID PANEL 07/03/2023 07/03/2022, 08/23/2020 ANNUAL PHYSICAL 09/15/2024 09/15/2023, 01/05/2023 INFLUENZA VACCINE 04/25/2025 05/17/2024, , 04/11/2021, Additional history exists MAMMOGRAM 09/27/2025 09/28/2023, 06/25, 08/28/2019 PAP SMEAR 01/05/2026 01/05/2023 TDAP/TD VACCINES (2 - Td or Tdap) 07/03/2032 022 COLONOSCOPY 10/27/2033 10/28/2023 COLORECTAL CANCER SCREENING 10/27/2033 HEPATITIS C SCREENING Completed 07/03/2022 Pneumococcal Vaccine 0-49 Completed 07/03/2022 COVID-19 Vaccine Completed 05/17/2024, 08/2021, 05/02/2021, Additional history exists Procedures Procedure Name Priority Date/Time Associated Diagnosis Comments SCANNED - COLONOSCOPY 10/28/2023 MAMMO SCREENING DIGITAL TOMOSYNTHESIS BILATERAL W CAD Routine 09/28/2023 Encounter for screening mammogram for malignant neoplasm of breast LIPID PANEL Routine 07/03/2022 9:13 AM EST Mixed hyperlipidemia HEPATITIS C ANTIBODY Routine 07/03/2022 9:13 AM EST Need for hepatitis C screening test from Last 3 Months or Most Recently Relevant to Health Maintenance Results * Colonoscopy, Scan (10/28/2023) us Du Humphries MD CHART REVIEW TABS Final Res ult * Mammo Screening Digital Tomosynthesis Bilateral With CAD (09/28/2023) Anatomical Region Laterality Modality Breast N/A Mammography us Du Humphries MD IMG MAMMOGRAPHY ORDERABLES Fin al Result * Hepatitis C Antibody (07/03/2022 9:13 AM EST) Hep C Virus Ab <0.1 0.0 - 0.9 s/co ratio [facility] Comment: Negative: < 0.8 Indeterminate: 0.8 - 0.9 Positive: > 0.9 HCV antibody alone does not differentiate between previous resolved infection and active infection. The CDC and current clinical guidelines recommend that a positive HCV antibody result be followed up with an HCV RNA test to support the diagnosis of acute HCV infection. [facility] offers Hepatitis C Virus (HCV) RNA, Diagnosis, RENAN (037369) and Hepatitis C Virus (HCV) Antibody with reflex to Quantitative Real-time PCR ([id number]). Blood Structure of left upper limb / Unknown 07/03/2022 9:13 AM EST 07/03/2022 Comment:Blood Release to [facility] i Narrative [facility] (AMBULATORY) - 07/04/2022 8:07 AM EST Performed at: 01 - [facility] [address] [place], [place] [id number] [employer]fare [employer] Operator: Last Zavaleta PhD, Phone: [phone] us Du Humphries MD LAB BLOOD ORDERABLES Final Res ult Performing Organization Address [facility]/ZIP Co de Phone Number [facility] ([facility]) [address] [place] [address], [facility] [address] [place] [address], * (ABNORMAL) Lipid Panel (07/03/2022 9:13 AM EST) Total Cholesterol 136 100 - 199 mg/dL [facility] Triglycerides 129 0 - 149 mg/dL [facility] HDL Cholesterol 33(L) >39 mg/dL [facility] VLDL Cholesterol Carlos 23 5 - 40 mg/dL [facility] LDL Chol Calc (NIH) 80 0 - 99 mg/dL [facility] Blood Structure of left upper limb / Unknown 07/03/2022 9:13 AM EST 07/03/2022 Comment:Blood Release to [facility] (AMBULATORY) - 07/04/2022 8:07 AM EST Performed at: 01 - [facility] [address] [id number] [employer] Operator: Last Zavaleta PhD, Phone: [phone] us Du Humphries MD LAB BLOOD ORDERABLES Final Res ult Performing Organization Address [facility]/ZIP Co de Phone Number [facility] ([facility]) [address] [place] [address], [facility] [address] [place] [address], from Last 3 Months or Most Recently Relevant to Health Maintenance Insurance [employer] Care Teams Standards Analyst Relationship Specialty Start Date End Date Du Humphries MD [address] [place] [address] [place] [address] PCP - General Internal Medicine 06/11/17
--- OUTSIDE RECORDS SUMMARY | 2025-03-19 10:46 | XMS_ITS | Encounter Summary ---
Author Organization [facility] Address [address] [place] [address] Care Team Providers Care Contract Technical Writer Name Role Phone Binh Ziegler MD Unavailable [phone] Vera Salcedo APRN Unavailable Reason for Visit * Reason Onset Date Comments Other 12/16/[address] Encounter Details Date Type Department Care Team (Late st Contact Info) Description 12/16/2023 Telephone [facility] [address] [place] [address], [address] [place] [address] Binh Ziegler MD [address] [place] [address] [place] [id number] Other (Medication request) Social History Tobacco Use Types Packs/Day Years Used Date Smoking Tobacco: Former Cigarettes 1 20 0 10/25/1997 - 10/25/2017 Passive Smoke Exposure: Never Smokeless Tobacco: Never Alcohol Use Standard Drinks/Week Comments Never 0 (1 standard drink = 0.6 oz pur e alcohol) [facility] Utilities Answer Date Recorded In the past [...] place to sleep or slept in a usp (including now)? No 12/14/2023 Comments No Sex and Gender Information Value Date Recorded Sex Assigned at Female 08/20/2023 9:24 AM EST Legal Sex Female 10:11 AM EDT Gender Identity Female 08/20/2023 9:24 AM EST Sexual Orientation Straight 08/20/2023 9: 24 AM EST documented as of this encounter Miscellaneous Notes * Telephone Encounter - Shelley Garcia - 12/16/2023 8:30 AM EDT Pt is calling in to request phenergan be called into her pharmacy for her; Pt states it was discussed after her procedure that this would be called in for her but the pharmacy hasn't received anything yet; Please review and advise. Thank you. documented in this encounter Plan of Treatment Not on file documented as of this encounter Visit Diagnoses Not on filedocumented in this encounter Care Teams Contract Technical Writer Relationship Specialty Start Date End Date Binh Ziegler MD [address], [place] [address] General Surgery 5/9/24 Vera Salcedo APRN [address] [place] [address] Nurse Practitioner 12/27/23 documented as of this encounter
--- OUTSIDE RECORDS SUMMARY | 2025-03-19 10:46 | XMS_ITS | Encounter Summary ---
Author Organization [facility] Address [address] [place] [address] Care Team Providers Care Sales Contractor Name Role Phone Du Humphries MD Primary Care Provider [phone] Reason for Visit * Reason Comments Med Refill Encounter Details Date Type Department Care Team (Late st Contact Info) Description 02/02/2025 Refill [facility] [address] [place] [address] [place] [address] Du Humphries MD [address] [place] [address] [place] [address] Iron deficiency Social History Tobacco Use Types Packs/Day Years Used Date Smoking Tobacco: Every Day Cigarettes 1 25 Smokeless Tobacco: Never Alcohol Use Standard Drinks/Week Comments Not Currently [...] on file documented as of this encounter Miscellaneous Notes * Telephone Encounter - Tere Garcia MA - 02/02/2025 9:04 AM EDT Last visit on 09/15/2024 documented in this encounter Plan of Treatment Not on file documented as of this encounter Visit Diagnoses Diagnosis Iron deficiency Disorders of iron metabolism documented in this encounter Care Teams Sales Contractor Relationship Specialty Start Date End Date Du Humphries MD [address] [place] [address] PCP - General Internal Medicine 06/11/17 documented as of this encounter
--- OUTSIDE RECORDS SUMMARY | 2025-03-19 10:46 | XMS_ITS | Encounter Summary ---
Author Organization [facility] Address [address] [place] [address] Care Team Providers Care Distribution Center Administrator Name Role Phone Du Humphries MD Primary Care Provider [phone] Encounter Details Date Type Department Care Team (Late st Contact Info) Description 05/27/2022 Telephone [facility] [address] [place] [address] Du Humphries MD [address] [place] [address] [place] [address] Social History Tobacco Use Types Packs/Day Years [...] encounter Miscellaneous Notes * Telephone Encounter - Bethany Delacruz - 05/27/2022 1:04 PM EDT Patient was spoken to on phone we will change her maya to amlodipine and losartan make follow up in1 month * Telephone Encounter - Melissa Smith RegSched Rep - 05/27/2022 12:45 PM EDT ERROR documented in this encounter Plan of Treatment Not on file documented as of this encounter Visit Diagnoses Diagnosis Hypertension, unspecified type- Primary documented in this encounter Care Teams Distribution Center Administrator Relationship Specialty Start Date End Date Du Humphries MD [address] [place] [address] PCP - General Internal Medicine 06/11/17 documented as of this encounter
--- OUTSIDE RECORDS SUMMARY | 2025-03-19 10:46 | XMS_ITS | Encounter Summary ---
Author Organization [facility] Address [address] [place] [address] Care Team Providers Care Electrician Third Name Role Phone Binh Ziegler MD Unavailable Vera Salcedo APRN Unavailable Encounter Details Date Type Department Care Team (Late st Contact Info) Description 12/02/2023 Telephone [facility] [address] [place] [address], [address] [place] [phone] Binh Ziegler MD [address] [place] [address] Social History Tobacco Use Types Packs/Day Years [...] on filedocumented in this encounter Care Teams Electrician Third Relationship Specialty Start Date End Date Binh Ziegler MD [address] [place] [address] General Surgery 12/02/23 Vera Salcedo APRN [address] [place] [address] Nurse Practitioner 12/27/23 documented as of this encounter
--- OUTSIDE RECORDS SUMMARY | 2025-03-19 10:46 | XMS_ITS | Encounter Summary ---
Author Organization [facility] Address [address] [place] [address] Care Team Providers Care Weaver Tire Cord Name Role Phone Du Humphries MD Primary Care Provider [phone] Reason for Visit * Reason Onset Date Comments Med Refill 02/05/2025 Encounter Details Date Type Department Care Team (Late st Contact Info) Description 02/05/2025 Refill [facility] [address] [place] [address] [place] [address] Du Humphries MD [address] [place] [address] [place] [address] Hidradenitis suppurativa Social History Tobacco Use Types Packs/Day Years [...] as of this encounter Visit Diagnoses Diagnosis Hidradenitis suppurativa Hidradenitis documented in this encounter Care Teams Weaver [employer]ire Cord Relationship Specialty Start Date End Date Du Humphries MD [address] [place] [address] PCP - General Internal Medicine 06/11/17 documented as of this encounter
--- OUTSIDE RECORDS SUMMARY | 2025-03-19 10:46 | XMS_ITS | Encounter Summary ---
Author Organization [facility] Address [address] [place] [address] Care Team Providers Care Alarm Mechanism Adjuster Name Role Phone Du Humphries MD Primary Care Provider [phone] Reason for Visit * Reason Comments Med Refill Encounter Details Date Type Department Care Team (Late st Contact Info) Description 01/02/2025 Refill [facility] [address], [address] [place] [address] Ignacio Enciso MD [address] [facility] [address] [place] [address] Social History Tobacco Use Types Packs/Day Years Used Date Smoking Tobacco: Never Smokeless Tobacco: Never PHQ-2 Answer Date Recorded Patient Health Questionnaire-2 Score 0 02/09/2024 Comments Unknown Sex and Gender Information Value Date Recorded Sex Assigned at Not on file Legal Sex Female 8:33 PM EDT Gender Identity Not on file Sexual Orientation Not on file documented as of this encounter Miscellaneous Notes * Telephone Encounter - Ignacio Enciso MD - 01/02/2025 8:34 AM EDT Not seen since . She needs to make an appointment to get refills. Once made I will provide refills for up to that new appointment. documented in this encounter Plan of Treatment Upcoming Encounters Date Type Department Care Team (Late st Contact Info) Description 09/19/2025 8:00 AM EST Office Visit [facility] [address], [address] [place] [address] Ignacio Enciso MD [address] [facility] [address] [place] [address] documented as of this encounter Visit Diagnoses Not on filedocumented in this encounter Additional Health Concerns Assessment Noted Time A fall risk assessment has been complete d for the patient 02/09/2024 8:21 AM EDT A Body Mass Index follow-up plan has been documented for the patient 09/15/2024 3:29 PM EST documented as of this encounter Care Teams Alarm Mechanism Adjuster Relationship Specialty Start Date End Date Du Humphries MD [address] [place] [address] PCP - General 12/22/23 documented as of this encounter
--- OUTSIDE RECORDS SUMMARY | 2025-03-19 10:46 | XMS_ITS | Encounter Summary ---
Author Organization [facility] Address [address] [place] [address] Care Team Providers Care Armhole Feller Handstitching Machine Name Role Phone Binh Ziegler MD Unavailable Vera Salcedo APRN Unavailable Reason for Visit * Reason Onset Date Comments Other 08/19/2023 Encounter Details Date Type Department Care Team (Late st Contact Info) Description 08/19/2023 Telephone [facility] [address] [place] [address] [place] [phone] Binh Ziegler MD [address] [place], [place] [id number] Other Social History Tobacco Use Types Packs/Day Years Used Date Smoking Tobacco: Former Cigarettes Q uit: 10/25/2017 Passive Smoke Exposure: Never Smokeless Tobacco: [...] encounter Miscellaneous Notes * Telephone Encounter - Aliya Bansal - 08/19/2023 9:31 AM EST error documented in this encounter Plan of Treatment Not on file documented as of this encounter Visit Diagnoses Not on filedocumented in this encounter Care Teams Armhole Feller Handstitching Machine Relationship Specialty Start Date End Date Binh Ziegler MD [address] [place] [id number] General Surgery 12/02/23 Vera Salcedo APRN [address] [place] [id number] Nurse Practitioner 12/27/23 documented as of this encounter
[2025-03-19 10:50] LABS: Hematocrit 36.9 % (37.0-47.0); Hemoglobin 12.5 g/dL (12.2-16.2); Immature Granulocytes % 0.3 %; Mean Corpuscular HGB Conc 33.9 g/dL (31.8-35.4); Mean Corpuscular Hemoglobin 30.5 pg (27.0-31.2); Mean Corpuscular Volume 90.0 fl (81-99); Nucleated Red Blood Cells % 0 %; Platelet Count 284 K/mm3 (142-424); Red Blood Count 4.10 M/mm3 (4.20-5.40); Red Cell Distribution Width-SD 41.5 fL; White Blood Count 6.8 K/mm3 (4.8-10.8)
[2025-03-19 11:07] LABS: Albumin Level 3.8 g/dl (3.5-5.0); Chloride 108 mmol/L (98-107); Potassium 4.1 mmoL/L (3.5-5.1); Sodium 138 mmol/L (136-145)
[2025-03-19 11:10] LABS: Alanine Aminotransferase 17 U/L (12-78); Albumin/Globulin Ratio 1.4 (1.1-1.8); Alkaline Phosphatase 72 U/L (38-126); Anion Gap 13.1 mEq/L (5-15); Aspartate Amino Transferase 23 U/L (14-36); Bilirubin,Total 0.3 mg/dl (0.2-1.3); Blood Urea Nitrogen 10 mg/dl (7-17); Calcium 8.6 mg/dl (8.4-10.2); Carbon Dioxide 21 mmol/L (22.0-30.0); Creatinine,Serum 0.60 mg/dl (0.52-1.04); Estimated Glomerular Filt Rate 107 ml/min (>60); GFR (African American) 129 ML/MIN (>60); Globulin 2.7 g/dL (1.3-3.2); Glucose 114 mg/dl (74-100); Iron 59 ug/dL (37-170); Total Protein,Serum 6.5 g/dl (6.3-8.2)
[2025-03-19 11:21] LABS: Total Iron Binding Capacity 343 ug/dL (265-497)
[2025-03-19 11:30] LABS: Free T4 (Free Thyroxine) 1.00 ng/dl (0.78-2.19)
[2025-03-19 11:43] LABS: Thyroid Stimulating Hormone 0.24 uIU/mL (0.465-4.68)
[2025-03-19 11:47] LABS: Ferritin 34.2 ng/ml (6.24-137)
[2025-03-20 08:13] LABS: Triiodothyronine (T3) Free 3.2 pg/mL (2.0-4.4)
== END 2025-03-19 23:59 | disposition home or self-care (01) ==
LOC: LAB 10:11
PROVIDERS: PCP Internal Medicine; Visit Provider Internal Medicine Endocrinology, Diabetes & Metabolism
DX: E05.00 Thyrotoxicosis with diffuse goiter without thyrotoxic crisis or storm (principal); E05.90 Thyrotoxicosis, unspecified without thyrotoxic crisis or storm
CPT/HCPCS: 36415; 80053; 82728; 83520; 83540; 83550; 84439; 84443; 84481; 85025